=== PATIENT | male | born 1970 | race Caucasian/White ===

== ENCOUNTER 2016-07-03 20:35 | Observation (INO) | payer OTHER ==
[~2016-07-03] VITALS: Ht 180.3 cm; Wt 100.8 kg
[2016-07-03 21:45] LABS: BASO # 0.1 K/mm3 (0.0-0.2); BASO % 0.9 % (0.0-1.0); EOS # 0.4 K/mm3 (0.0-0.50); EOS % 5.5 % (0.0-3.0); LARGE UNSTAINED CELL # 0.1 K/mm3 (0.0-0.4); LARGE UNSTAINED CELL % 1.8 % (0.0-4.0); LYMPH % 38.2 % (24.0-44.0); MEAN CORPUSCULAR HEMOGLOBIN 30.7 pg (27.0-33.0); MEAN CORPUSCULAR HGB CONC 34.7 g/dl (32.0-36.5); MEAN CORPUSCULAR VOLUME 88.5 fl (80.0-96.0); MONO # 0.6 K/mm3 (0.0-0.8); MONO % 7.4 % (0.0-5.0); NEUTROPHILS # 3.5 K/mm3 (1.8-7.7); NEUTROPHILS % 46.1 % (36.0-66.0); PLATELET COUNT, AUTOMATED 220 k/mm3 (150-450); RED CELL DISTRIBUTION WIDTH 12.9 % (11.5-14.5); WHITE BLOOD COUNT 7.5 K/mm3 (4.0-10.0)
[2016-07-03 22:00] LABS: ANION GAP 5 MEQ/L (8-16); BLOOD UREA NITROGEN 22 MG/DL (7-18); CALCIUM LEVEL 8.7 MG/DL (8.5-10.1); CARBON DIOXIDE LEVEL 30 MEQ/L (21-32); CHLORIDE LEVEL 105 MEQ/L (98-107); CREATININE FOR GFR 1.19 MG/DL (0.70-1.30); GLOMERULAR FILTRATION RATE > 60.0 (>60); GLUCOSE, FASTING 101 MG/DL (70-105); SODIUM LEVEL 140 MEQ/L (136-145)
[2016-07-03] MEDS ORDERED: ISOVUE-370 76% 100ML VIAL (Q9967) As Ordered ONE (22:29)
--- NOTE | 2016-07-03 23:00 | REPUSA ---
CT of the head Clinical history: syncope. Technique: Multiple axial CT images were obtained through the head without administration of contrast . Findings: The ventricles and sulci are symmetric bilaterally. There is no evidence of acute hemorrhag e or infarct. There is no midline shift, mass effect, or extra-axial fluid collection. The osseous st ructures are unremarkable. The visualized paranasal sinuses and mastoid air cells are clear. Impression: Negative study.
--- NOTE | 2016-07-03 23:10 | REPUSA ---
Clinical history:, syncope, neck pain. Technique: Multiple axial CT images were obtained through the neck after a bolus of nonionic intraven ous contrast. Coronal and sagittal reconstructed images were also obtained. Findings: The visualized intracerebral arterial structures, extending inferiorly through the carotid and vertebrobasilar arterial systems, and into the upper thorax demonstrate normal caliber and contou r. There is no evidence of aneurysm, stenosis, or thrombosis. The osseous structures are unremarkable . Impression: Unremarkable CT angiogram of the neck.
[2016-07-03 23:19] LABS: AMPHETAMINES LEVEL URINE NEGATIVE (NEGATIVE); BENZODIAZEPINES URINE NEGATIVE (NEGATIVE); COCAINE METABOLITE URINE NEGATIVE (NEGATIVE); CONTROL LINE INT CTR LINE PRESENT; METHADONE URINE NEGATIVE (NEGATIVE); OPIATES URINE NEGATIVE (NEGATIVE); TRICYCLIC ANTIDEPRESS URINE NEGATIVE (NEGATIVE)
[2016-07-04] MEDS ORDERED: OMEP40CA2 PO (00:40)
[2016-07-04] MEDS ORDERED: SYNT100T PO (00:40)
[2016-07-04] MEDS ORDERED: ACET50TAOT PO (00:40)
[2016-07-04] MEDS ORDERED: NAPR1TAB86 PO (00:40)
[2016-07-04] MEDS ORDERED: SULF500T2 PO (00:40)
[2016-07-04] MEDS ORDERED: DICY10CA13 PO (00:40)
[2016-07-04 00:52] LABS: ERYTHROCYTE SEDIMENTATION RATE 2 mm/hr (0-15)
[2016-07-04] MEDS ORDERED: DICYCLOMINE 10 MG CAP PO PRN (03:00)
[2016-07-04] MEDS ORDERED: ACETAMINOPHEN 500 MG TAB PO PRN (03:00)
[2016-07-04] MEDS ORDERED: LEVOTHYROXINE 0.1 MG TAB (100 MCG) PO SCH (06:00)
[2016-07-04 06:48] LABS: MEAN CORPUSCULAR HEMOGLOBIN 30.7 pg (27.0-33.0); MEAN CORPUSCULAR HGB CONC 35.1 g/dl (32.0-36.5); MEAN CORPUSCULAR VOLUME 87.4 fl (80.0-96.0); WHITE BLOOD COUNT 5.8 K/mm3 (4.0-10.0)
[2016-07-04 07:14] LABS: ANION GAP 8 MEQ/L (8-16); BLOOD UREA NITROGEN 18 MG/DL (7-18); CARBON DIOXIDE LEVEL 27 MEQ/L (21-32); CHLORIDE LEVEL 106 MEQ/L (98-107); CREATININE FOR GFR 1.07 MG/DL (0.70-1.30); GLOMERULAR FILTRATION RATE > 60.0 (>60); GLUCOSE, FASTING 101 MG/DL (70-105); POTASSIUM SERUM 3.9 MEQ/L (3.5-5.1); SODIUM LEVEL 141 MEQ/L (136-145)
[2016-07-04 08:00] VITALS: BP 127/87
--- NOTE | 2016-07-04 08:33 | REP ---
Clinical: Syncope . Comparison: 09/20/2015 . Findings: The mediastinum and cardiac silhouette are stable and within normal limits for portable technique. The lung [place] are clear without acute consolidation, effusion, or pneumothorax. Skeletal structures are intact. Impression: Normal portable chest x-ray Signed by Marbin Eubanks MD 07/04/2016 08:24 A
--- NOTE | 2016-07-04 08:57 | REP ---
MRA BRAIN WITHOUT CONTRAST: HISTORY: Syncope. 3D [id number] MR angiography was performed at the level of the ey[place] of [place]. There is no aneurysm, arteriovenous malformation or atherosclerotic lesion. Major intracranial vessels are patent. The vertebral arteries are equal in size. IMPRESSION: Normal MRA brain. Signed by Sidney Fuller MD 07/04/2016 09:09 A
[2016-07-04] MEDS ORDERED: ENOXAPARIN 40 MG/0.4 ML SYRINGE (J1650) SC SCH (09:00)
[2016-07-04] MEDS ORDERED: OMEPRAZOLE 20 MG CAP PO SCH (09:00)
[2016-07-04] MEDS ORDERED: sulfaSALAzine 500 MG TABEC PO SCH (09:00)
[2016-07-04] MEDS ORDERED: NAPROXEN 250 MG TAB PO SCH (09:00)
--- NOTE | 2016-07-04 09:07 | REP ---
MRI BRAIN WITHOUT CONTRAST: HISTORY: Syncope. COMPARISON: CT 07/03/2016. There are no areas of abnormal signal intensity in the brain. There is no intraparenchymal hemorrhage, infarct, mass or midline shift. The sella turcica is partially empty. The ventricular system is normal in appearance. There is no extracerebral collection. Minimal mucosal thickening is present in the left maxillary sinus. IMPRESSION: There is no intracranial lesion. Signed by Sidney Fuller MD 07/04/2016 09:08 A
[2016-07-04] MEDS ORDERED: LORazepam 2 MG/ML VIAL (J2060) IV PRN (11:00)
[2016-07-04 11:24] LABS: ALBUMIN 3.8 GM/DL (3.2-5.2); ALBUMIN/GLOBULIN RATIO 1.31 (1.00-1.93); ALKALINE PHOSPHATASE 57 U/L (45-117); ALT/SGPT 20 U/L (12-78); AST/SGOT 13 U/L (15-37); BILIRUBIN,DIRECT < 0.1 MG/DL (0.0-0.2); BILIRUBIN,TOTAL 0.5 MG/DL (0.2-1.0); TOTAL PROTEIN 6.7 GM/DL (6.4-8.2)
[2016-07-04 12:00] VITALS: BP 147/95
[2016-07-04 12:15] LABS: MEAN CORPUSCULAR HEMOGLOBIN 30.9 pg (27.0-33.0); MEAN CORPUSCULAR HGB CONC 34.9 g/dl (32.0-36.5); MEAN CORPUSCULAR VOLUME 88.5 fl (80.0-96.0); RED CELL DISTRIBUTION WIDTH 12.9 % (11.5-14.5); WHITE BLOOD COUNT 6.4 K/mm3 (4.0-10.0)
--- NOTE | 2016-07-04 12:24 | EDDOCDS ---
Physician Documentation [facility] Name: Walt Varela Age: 46 yrs Sex: Male : 1970 Arrival Date: 07/03/2016 Time: 20:35 Bed Admit Hold Private MD: Rick Borjas M.D. Disposition: 07/04/16 00:22 Hospitalization ordered by Genaro Shelton for Inpatient Admission. Preliminary diagnosis are Syncope and collapse, Headache. - Bed requested for Admit. - Status is Inpatient Admission. mcp - Condition is Stable. - Problem is an acute exacerbation. - Symptoms have improved. Historical: - Allergies: no known allergies; - Home Meds: 1. dicyclomine 10 mg Oral cap 1 cap as needed 2. levothyroxine 100 mcg Oral tab 1 tab once daily 3. omeprazole 40 mg Oral cpDR 1 cap 2 times per day for Gastroesophageal Reflux 4. naproxen 500 mg Oral tab 1 tab 2 times per day 5. sulfasalazine 500 mg Oral tab 1 tab twice a day for Rheumatoid Arthritis - PMHx: GERD; Rheumatoid Arthritis; Hypothyroidism; - PSHx: Tonsillectomy; Adenoidectomy; Vasectomy; - Social history: Smoking status: Patient uses tobacco products, light tobacco smoker. No barriers to communication noted, The patient speaks fluent Setswana. - Family history: No immediate family members are acutely ill. - : The pt / caregiver states he / she is not on anticoagulants. Home medication list is obtained from the patient. - Exposure Risk Screening:: None identified. Vital Signs: 07/03 20:37 BP 142 / 96; Pulse 72; Resp 18; Temp 98.2(O); Pulse Ox 96% on R/A; Weight 100.79 kg / kb5 222.2 lbs (M); Height 5 ft. 11 in. (180.34 cm) (R); Pain 5/10; 21:27 BP 133 / 91 Supine; Pulse 63; Resp 16; Pulse Ox 97% ; mv5 21:27 BP 144 / 99 Sitting; Pulse 62; Resp 16; Pulse Ox 97% ; mv5 21:27 BP 150 / 101 Standing; Pulse 61; Resp 18; Pulse Ox 96% ; mv5 21:30 BP 145 / 90 (auto/); mv5 21:30 Pulse 62 MON; Pulse Ox 97% ; mv5 21:45 BP 149 / 85 (auto/); mv5 21:45 Pulse 62 MON; Pulse Ox 95% ; mv5 22:00 BP 138 / 93 (auto/); mv5 22:00 Pulse 70 MON; Pulse Ox 96% ; mv5 22:15 BP 128 / 87 (auto/); mv5 22:15 Pulse 63 MON; Pulse Ox 94% ; mv5 22:30 BP 126 / 86 (auto/); mv5 22:30 Pulse 62 MON; Pulse Ox 96% ; mv5 22:48 BP 136 / 87 (auto/); mv5 22:49 Pulse 61 MON; Pulse Ox 97% ; mv5 23:00 BP 134 / 88 (auto/); mv5 23:00 Pulse 57 MON; Pulse Ox 95% ; mv5 23:15 BP 133 / 93 (auto/); mv5 23:15 Pulse 55 MON; Pulse Ox 94% ; mv5 23:30 BP 124 / 76 (auto/); mv5 23:30 Pulse 63 MON; Pulse Ox 98% ; mv5 23:45 BP 128 / 85 (auto/); mv5 23:45 Pulse 60 MON; Pulse Ox 95% ; mv5 02/21 00:00 BP 107 / 62 (auto/); mv5 00:00 Pulse 63 MON; Pulse Ox 95% ; mv5 00:15 BP 115 / 70 (auto/); mv5 00:15 Pulse 66 MON; Pulse Ox 96% ; mv5 00:30 BP 116 / 72 (auto/); mv5 00:30 Pulse 61 MON; Pulse Ox 94% ; mv5 00:45 BP 116 / 76 (auto/); mv5 00:45 Pulse 57 MON; Pulse Ox 94% ; mv5 01:00 BP 115 / 85 (auto/); mv5 01:00 Pulse 60 MON; Pulse Ox 96% ; mv5 01:15 BP 125 / 82 (auto/); mv5 01:15 Pulse 55 MON; Pulse Ox 95% ; mv5 01:30 BP 104 / 61 (auto/); mv5 01:30 Pulse 59 MON; Pulse Ox 96% ; mv5 01:45 BP 105 / 66 (auto/); mv5 01:45 Pulse 61 MON; Pulse Ox 96% ; mv5 02:00 BP 104 / 62 (auto/); mv5 02:00 Pulse 57 MON; Pulse Ox 96% ; mv5 02:15 BP 121 / 67 (auto/); mv5 02:15 Pulse 51 MON; Pulse Ox 96% ; mv5 02:30 BP 109 / 61 (auto/); mv5 02:30 Pulse 55 MON; Pulse Ox 95% ; mv5 02:45 BP 108 / 67 (auto/); mv5 02:45 Pulse 58 MON; Pulse Ox 97% ; mv5 03:00 BP 113 / 71 (auto/); mv5 03:00 Pulse 63 MON; Pulse Ox 95% ; mv5 04:18 BP 128 / 81 (auto/); mv5 04:21 Pulse 71 MON; Pulse Ox 95% ; mv5 04:30 BP 103 / 60 (auto/); mv5 04:30 Pulse 62 MON; Pulse Ox 95% ; mv5 04:45 BP 104 / 62 (auto/); mv5 04:45 Pulse 61 MON; Pulse Ox 95% ; mv5 05:00 BP 111 / 63 (auto/); mv5 05:00 Pulse 59 MON; Pulse Ox 96% ; mv5 05:15 BP 105 / 62 (auto/); mv5 05:15 Pulse 61 MON; Pulse Ox 96% ; mv5 06:20 BP 110 / 73 (auto/); mv5 06:20 Pulse 108 MON; Pulse Ox 92% ; mv5 0220 20:37 Body Mass Index 30.99 (100.79 kg, 180.34 cm) kb5 MDM: 07/03 20:50 ECG WITH READING ER PHYS+CARDIAG ordered. EDMS 21:14 Environmental Studies Program Director/Pulse Ox/q 15 min VS ordered. mm11 21:14 Accucheck ordered. mm11 21:14 IV Saline Lock ordered. mm11 21:14 Orthostatic VS ordered. mm11 21:14 Rhythm Strip to chart ordered. mm11 21:15 Basic Metabolic Profile Ordered. EDMS 21:15 CBC with Diff Ordered. EDMS 21:15 Cardiac Injury Profile Ordered. EDMS 21:15 Drug Eval Toxicology ED Only Ordered. EDMS 21:15 Thyroid Stimulating Hormone Ordered. EDMS 21:15 Troponin Ordered. EDMS 21:16 CT Head Without Contrast Ordered. EDMS 21:16 Chest, 1 View Ordered. EDMS 21:16 CT Angio Neck: r/o carotid dissection Ordered. EDMS 21:39 Financial registration complete. zo 22:01 PA-[facility] Payment Agreement was scanned into [employer] and attached to record. zo 22:06 Fingerstick Blood Sugar Ordered. EDMS 22:07 Basic Metabolic Profile Reviewed. mm11 22:07 CBC with Diff Reviewed. mm11 22:07 Troponin Reviewed. mm11 23:21 Basic Metabolic Profile Reviewed. mm11 23:21 Drug Eval Toxicology ED Only Reviewed. mm11 23:21 Thyroid Stimulating Hormone Reviewed. mm11 23:21 Cardiac Injury Profile Reviewed. mm11 23:21 Troponin Reviewed. mm11 23:21 Fingerstick Blood Sugar Reviewed. mm11 23:42 Basic Metabolic Profile Reviewed. mm11 23:42 Thyroid Stimulating Hormone Reviewed. mm11 23:42 Cardiac Injury Profile Reviewed. mm11 23:42 Troponin Reviewed. mm11 23:42 FREE T4 Reviewed. mm11 07/04 00:11 BED REQUEST+ADM ordered. EDMS 00:13 ERYTHROCYTE SEDIMENTATION RATE Ordered. EDMS 00:18 Admission / Observation Status ordered. EDMS 00:19 CBC with Diff Reviewed. mm11 00:19 CT Head Without Contrast Reviewed. mm11 00:19 CT Angio Neck: r/o carotid dissection Reviewed. mm11 03:04 ECHOCARD,DOPPLER/COLOR FLOW ordered. EDMS 03:04 REGULAR DIET ordered. EDMS 03:04 MRA BRAIN W/O CONTRAST Ordered. EDMS 03:04 MRI Brain without Contrast Ordered. EDMS 03:06 CARDIAC MARKER PANEL Ordered. EDMS 03:06 CARDIAC MARKER PANEL Ordered. EDMS 03:08 COMPLETE BLOOD COUNT Ordered. EDMS 03:08 COMPLETE BLOOD COUNT Ordered. EDMS 03:21 BASIC METABOLIC PROFILE Ordered. EDMS Point of Care Testing: Blood Glucose: 07/03 21:49 Blood Glucose: 92 mg/dL; mv5 Ranges: Signatures: Dispatcher [employer] EDNila Dumont RN RN Minh Quezada Matthew, DO DO mm11 Anny Carlisle RN RN rs3 Kalani FonsecaRN RN mv5 The chart was reviewed and I authenticate all verbal orders and agree with the evaluation and treatment provided.Corrections: (The following items were deleted from the chart) 23:26 23:23 FREE T4+LAB ordered. EDMS EDMS 07/04 00:14 00:01 ERYTHROCYTE SEDIMENTATION RATE+LAB ordered. EDMS EDMS 03:20 03:08 BASIC METABOLIC PROFILE ordered. EDMS EDMS 11:01 10:55 LIVER PROFILE ordered. EDMS EDMS 12: 03:08 COMPLETE BLOOD COUNT ordered. EDMS EDMS : 07/03 22:[address] PA[address] Payment Agreement zo MTDD
--- NOTE | 2016-07-04 12:24 | EDDOCDS ---
Nurse's Notes [facility] Name: Walt Varela Age: 46 yrs Sex: Male : 1970 Arrival Date: 07/03/2016 Time: 20:35 Bed Admit Hold Private MD: Rick Borjas M.D. Diagnosis: Syncope and collapse;Headache Presentation: 07/03 20:43 Presenting complaint: Patient states: syncopal episode twice last night lasted 30 secs. rs3 no syncope today. reports of headache, generalized weakness, neck pain, blurred vision since this morning. Acute neurological deficits are not present. Patient denies the presence of acute pain prior to syncopal episode. The patient is not diaphoretic or experienced diaphoresis prior to the syncopal episode The patient denies shortness of breath. The patient denies recent surgery. Adult Sepsis Screening: The patient does not have new or worsening altered mentation. Patient's respiratory rate is less than 22. Systolic blood pressure is greater than 100. Patient has a qSOFA score of 0- Negative Sepsis Screen. Suicide/Homicide risk assessment- the patient denies having any suicidal and/or homicidal ideations and does not present with any other emotional, behavioral or mental health complaints. Status: Patient is not a fiscal services manager or dependent. Transition of care: patient was not received from another setting of care. 20:43 Acuity: JANY Level 3 rs3 20:43 Method Of Arrival: Walkin/Carried/Asstd rs3 Triage Assessment: 20:46 General: Appears in no apparent distress. Pain: Location: neck pain. HIV screening NA rs3 for this visit Offered previously. Neurological: Reports headache. Historical: - Allergies: no known allergies; - Home Meds: 1. dicyclomine 10 mg Oral cap 1 cap as needed 2. levothyroxine 100 mcg Oral tab 1 tab once daily 3. omeprazole 40 mg Oral cpDR 1 cap 2 times per day for Gastroesophageal Reflux 4. naproxen 500 mg Oral tab 1 tab 2 times per day 5. sulfasalazine 500 mg Oral tab 1 tab twice a day for Rheumatoid Arthritis - PMHx: GERD; Rheumatoid Arthritis; Hypothyroidism; - PSHx: Tonsillectomy; Adenoidectomy; Vasectomy; - Social history: Smoking status: Patient uses tobacco products, light tobacco smoker. No barriers to communication noted, The patient speaks fluent Macedonian. - Family history: No immediate family members are acutely ill. - : The pt / caregiver states he / she is not on anticoagulants. Home medication list is obtained from the patient. - Exposure Risk Screening:: None identified. Screenin:28 Screening information is obtained from the patient. Fall risk: No risks identified. mv5 Assistance ADL's: requires no assistance with activities of daily living. Abuse/DV Screen: The patient / caregiver reports he/she is: not in a situation that causes fear, pain or injury. Nutritional screening: No deficits noted. Advance Directives: There is no active DNR order. home support is adequate. Assessment: 21:28 General: Appears in no apparent distress, comfortable, Behavior is cooperative, mv5 pleasant, Pt's at bedside.. Pain: Denies pain. Neurological: Level of Consciousness is awake, alert, Oriented to person, place, time, Alligator Trapper are equal bilaterally Moves all extremities. Speech is normal, Facial symmetry appears normal. Cardiovascular: Capillary refill < 3 seconds Heart tones S1 S2 present Pulses are all present. Rhythm is sinus rhythm No ectopy. Respiratory: Airway is patent Respiratory effort is even, unlabored, Respiratory pattern is regular, symmetrical. Derm: Skin is pink, warm & dry. 22:24 General: Appears in no apparent distress, comfortable, Behavior is cooperative, mv5 pleasant, at bedside. Pain: Denies pain. Neurological: No deficits noted. Cardiovascular: Rhythm is sinus rhythm No ectopy. Respiratory: Airway is patent Respiratory effort is even, unlabored, Respiratory pattern is regular, symmetrical. Derm: Skin is pink, warm & dry. 23:12 General: Appears in no apparent distress, comfortable, Behavior is cooperative, mv5 pleasant. Pain: Location: top of head, left jew, right frontal area, right side of the back of head, right temporal area, right occipital area and right base of the skull Pain currently is 4 out of 10 on a pain scale. Neurological: No deficits noted. Cardiovascular: Rhythm is sinus rhythm No ectopy. Respiratory: Airway is patent Respiratory effort is even, unlabored, Respiratory pattern is regular, symmetrical. Derm: Skin is pink, warm & dry. 07/04 00:29 General: Appears in no apparent distress, comfortable, Behavior is cooperative, mv5 pleasant. Neurological: No deficits noted. Respiratory: Airway is patent Respiratory effort is even, unlabored, Respiratory pattern is regular, symmetrical. Derm: Skin is pink, warm & dry. 01:29 General: Appears in no apparent distress, comfortable, Behavior is cooperative, mv5 pleasant. Neurological: Level of Consciousness is awake, alert, Oriented to person, place, time, Moves all extremities. Speech is normal, Facial symmetry appears normal. Cardiovascular: Rhythm is sinus rhythm No ectopy. Respiratory: Airway is patent Respiratory effort is even, unlabored, Respiratory pattern is regular, symmetrical. Derm: Skin is pink, warm & dry. 02:20 General: Appears in no apparent distress, comfortable. Neurological: No deficits noted. mv5 Cardiovascular: Rhythm is sinus rhythm No ectopy. Derm: Skin is pink, warm & dry. 03:20 General: Appears in no apparent distress. Neurological: No deficits noted. mv5 Cardiovascular: Rhythm is sinus rhythm No ectopy. Respiratory: No deficits noted. Derm: Skin is pink, warm & dry. 04:23 General: Appears in no apparent distress, Behavior is cooperative, restless. mv5 Neurological: No deficits noted. Cardiovascular: Rhythm is sinus rhythm No ectopy. Derm: Skin is pink, warm & dry. 05:29 General: Appears in no apparent distress, comfortable. Neurological: No deficits noted. mv5 Cardiovascular: Rhythm is sinus rhythm No ectopy. Respiratory: Derm: Skin is pink, warm & dry. 06:35 General: Appears in no apparent distress, comfortable. Neurological: No deficits noted. mv5 Cardiovascular: Rhythm is sinus rhythm No ectopy. Respiratory: Airway is patent Respiratory effort is even, unlabored, Respiratory pattern is regular, symmetrical. Derm: Skin is pink, warm & dry. Vital Signs: 07/03 20:37 BP 142 / 96; Pulse 72; Resp 18; Temp 98.2(O); Pulse Ox 96% on R/A; Weight 100.79 kg kb5 (M); Height 5 ft. 11 in. (180.34 cm) (R); Pain 5/10; 21:27 BP 133 / 91 Supine; Pulse 63; Resp 16; Pulse Ox 97% ; mv5 21:27 BP 144 / 99 Sitting; Pulse 62; Resp 16; Pulse Ox 97% ; mv5 21:27 BP 150 / 101 Standing; Pulse 61; Resp 18; Pulse Ox 96% ; mv5 21:30 BP 145 / 90 (auto/); mv5 21:30 Pulse 62 MON; Pulse Ox 97% ; mv5 21:45 BP 149 / 85 (auto/); mv5 21:45 Pulse 62 MON; Pulse Ox 95% ; mv5 22:00 BP 138 / 93 (auto/); mv5 22:00 Pulse 70 MON; Pulse Ox 96% ; mv5 22:15 BP 128 / 87 (auto/); mv5 22:15 Pulse 63 MON; Pulse Ox 94% ; mv5 22:30 BP 126 / 86 (auto/); mv5 22:30 Pulse 62 MON; Pulse Ox 96% ; mv5 22:48 BP 136 / 87 (auto/); mv5 22:49 Pulse 61 MON; Pulse Ox 97% ; mv5 23:00 BP 134 / 88 (auto/); mv5 23:00 Pulse 57 MON; Pulse Ox 95% ; mv5 23:15 BP 133 / 93 (auto/); mv5 23:15 Pulse 55 MON; Pulse Ox 94% ; mv5 23:30 BP 124 / 76 (auto/); mv5 23:30 Pulse 63 MON; Pulse Ox 98% ; mv5 23:45 BP 128 / 85 (auto/); mv5 23:45 Pulse 60 MON; Pulse Ox 95% ; mv5 02/21 00:00 BP 107 / 62 (auto/); mv5 00:00 Pulse 63 MON; Pulse Ox 95% ; mv5 00:15 BP 115 / 70 (auto/); mv5 00:15 Pulse 66 MON; Pulse Ox 96% ; mv5 00:30 BP 116 / 72 (auto/); mv5 00:30 Pulse 61 MON; Pulse Ox 94% ; mv5 00:45 BP 116 / 76 (auto/); mv5 00:45 Pulse 57 MON; Pulse Ox 94% ; mv5 01:00 BP 115 / 85 (auto/); mv5 01:00 Pulse 60 MON; Pulse Ox 96% ; mv5 01:15 BP 125 / 82 (auto/); mv5 01:15 Pulse 55 MON; Pulse Ox 95% ; mv5 01:30 BP 104 / 61 (auto/); mv5 01:30 Pulse 59 MON; Pulse Ox 96% ; mv5 01:45 BP 105 / 66 (auto/); mv5 01:45 Pulse 61 MON; Pulse Ox 96% ; mv5 02:00 BP 104 / 62 (auto/); mv5 02:00 Pulse 57 MON; Pulse Ox 96% ; mv5 02:15 BP 121 / 67 (auto/); mv5 02:15 Pulse 51 MON; Pulse Ox 96% ; mv5 02:30 BP 109 / 61 (auto/); mv5 02:30 Pulse 55 MON; Pulse Ox 95% ; mv5 02:45 BP 108 / 67 (auto/); mv5 02:45 Pulse 58 MON; Pulse Ox 97% ; mv5 03:00 BP 113 / 71 (auto/); mv5 03:00 Pulse 63 MON; Pulse Ox 95% ; mv5 04:18 BP 128 / 81 (auto/); mv5 04:21 Pulse 71 MON; Pulse Ox 95% ; mv5 04:30 BP 103 / 60 (auto/); mv5 04:30 Pulse 62 MON; Pulse Ox 95% ; mv5 04:45 BP 104 / 62 (auto/); mv5 04:45 Pulse 61 MON; Pulse Ox 95% ; mv5 05:00 BP 111 / 63 (auto/); mv5 05:00 Pulse 59 MON; Pulse Ox 96% ; mv5 05:15 BP 105 / 62 (auto/); mv5 05:15 Pulse 61 MON; Pulse Ox 96% ; mv5 06:20 BP 110 / 73 (auto/); mv5 06:20 Pulse 108 MON; Pulse Ox 92% ; mv5 02 20:37 Body Mass Index 30.99 (100.79 kg, 180.34 cm) kb5 Vitals: 07/03 20:37 Log In Time: July 03, 2016 at 20:00. kb5 ED Course: 20:36 Patient visited by Kiet Baxter PCA. kb5 20:36 Patient moved to Waiting kb5 20:37 Rick Borjas is Private Physician. kb5 20:40 Patient visited by Kiet Baxter PCA. kb5 20:45 Triage Initiated rs3 20:48 Patient moved to PR2 / 26 rs3 20:53 EKG done. (by ED staff). Reviewed by Miki Russell DO. ar3 20:54 Kalani Fonseca,RN is Primary Nurse. jmb 20:54 Patient moved to 3 jmb 20:56 Miki Russell DO is Attending Physician. mm11 20:56 Patient visited by Miki Russell DO. mm11 21:01 Patient visited by Caitlin Villarreal PCA. ar3 21:13 Patient visited by Miki Russell DO. mm11 21:19 Basic Metabolic Profile Sent. mv5 21:19 CBC with Diff Sent. mv5 21:19 Cardiac Injury Profile Sent. mv5 21:20 Drug Eval Toxicology ED Only Sent. mv5 21:20 Thyroid Stimulating Hormone Sent. mv5 21:20 Troponin Sent. mv5 21:28 The patient / caregiver is instructed regarding the plan of care and ED course. mv5 21:28 Inserted saline lock: 18 gauge in right antecubital area and blood collected. The mv5 patient tolerated the procedure well. 21:49 Patient visited by Kalani Fonseca,ARBEN. mv5 22:01 [facility] Payment Agreement was scanned into Takes and attached to record. zo 22:24 Patient visited by Kalani Fonseca,ARBEN. mv5 23:12 Patient visited by Kalani Fonseca,ARBEN. mv5 23:43 Patient visited by Miki Russell DO. mm11 23:55 CT Head Without Contrast Returned. EDMS 23:55 CT Angio Neck: r/o carotid dissection Returned. EDMS 07/04 00:21 Genaro Shelton DO is Hospitalizing Provider. mm11 02:10 Patient moved to Admit Hold nn1 08:47 Chest, 1 View Returned. EDMS 09:29 MRA BRAIN W/O CONTRAST Returned. EDMS 09:29 MRI Brain without Contrast Returned. EDMS Point of Care Testing: Blood Glucose: 07/03 21:49 Blood Glucose: 92 mg/dL; mv5 Ranges: Order Results: Lab Order: Basic Metabolic Profile; SPEC'M 07/03/16 21:16 Test: GLUCOSE, FASTING; Value: 101; Range: 70-105; Units: MG/DL; Status: F Test: BLOOD UREA NITROGEN; Value: 22; Range: 7-18; Abnormal: Above high normal; Units: MG/DL; Status: F Test: CREATININE FOR GFR; Value: 1.19; Range: 0.70-1.30; Units: MG/DL; Status: F Test: GLOMERULAR FILTRATION RATE; Value: > 60.0; Range: >60; Status: F Test: SODIUM LEVEL; Value: 140; Range: 136-145; Units: MEQ/L; Status: F Test: POTASSIUM SERUM; Value: 4.0; Range: 3.5-5.1; Units: MEQ/L; Status: F Test: CHLORIDE LEVEL; Value: 105; Range: 98-107; Units: MEQ/L; Status: F Test: CARBON DIOXIDE LEVEL; Value: 30; Range: 21-32; Units: MEQ/L; Status: F Test: ANION GAP; Value: 5; Range: 8-16; Abnormal: Below low normal; Units: MEQ/L; Status: F Test: CALCIUM LEVEL; Value: 8.7; Range: 8.5-10.1; Units: MG/DL; Status: F Test Note: ; Units are mL/min/1.73 m2 Chronic Kidney Disease Staging per NKF: Stage I & II GFR >=60 Normal to Mildly Decreased Stage III GFR 30-59 Moderately Decreased Stage IV GFR 15-29 Severely Decreased Stage V GFR <15 Very Little GFR Left ESRD GFR <15 on ZONING ENGINEER Lab Order: CBC with Diff; SPEC'M 07/03/16 21:16 Test: WHITE BLOOD COUNT; Value: 7.5; Range: 4.0-10.0; Units: K/mm3; Status: F Test: RED BLOOD COUNT; Value: 5.05; Range: 4.30-6.10; Units: M/mm3; Status: F Test: HEMOGLOBIN; Value: 15.5; Range: 14.0-18.0; Units: g/dl; Status: F Test: HEMATOCRIT; Value: 44.7; Range: 42.0-52.0; Units: %; Status: F Test: MEAN CORPUSCULAR VOLUME; Value: 88.5; Range: 80.0-96.0; Units: fl; Status: F Test: MEAN CORPUSCULAR HEMOGLOBIN; Value: 30.7; Range: 27.0-33.0; Units: pg; Status: F Test: MEAN CORPUSCULAR HGB CONC; Value: 34.7; Range: 32.0-36.5; Units: g/dl; Status: F Test: RED CELL DISTRIBUTION WIDTH; Value: 12.9; Range: 11.5-14.5; Units: %; Status: F Test: PLATELET COUNT, AUTOMATED; Value: 220; Range: 150-450; Units: k/mm3; Status: F Test: NEUTROPHILS %; Value: 46.1; Range: 36.0-66.0; Units: %; Status: F Test: LYMPH %; Value: 38.2; Range: 24.0-44.0; Units: %; Status: F Test: MONO %; Value: 7.4; Range: 0.0-5.0; Abnormal: Above high normal; Units: %; Status: F Test: EOS %; Value: 5.5; Range: 0.0-3.0; Abnormal: Above high normal; Units: %; Status: F Test: BASO %; Value: 0.9; Range: 0.0-1.0; Units: %; Status: F Test: LARGE UNSTAINED CELL %; Value: 1.8; Range: 0.0-4.0; Units: %; Status: F Test: NEUTROPHILS #; Value: 3.5; Range: 1.8-7.7; Units: K/mm3; Status: F Test: LYMPH #; Value: 3.0; Range: 1.5-4.5; Units: K/mm3; Status: F Test: MONO #; Value: 0.6; Range: 0.0-0.8; Units: K/mm3; Status: F Test: EOS #; Value: 0.4; Range: 0.0-0.50; Units: K/mm3; Status: F Test: BASO #; Value: 0.1; Range: 0.0-0.2; Units: K/mm3; Status: F Test: LARGE UNSTAINED CELL #; Value: 0.1; Range: 0.0-0.4; Units: K/mm3; Status: F Lab Order: Cardiac Injury Profile; SPEC'M 07/03/16 21:16 Test: CPK CREATINE PHOSPHOKINASE; Value: 93; Range: 39-308; Units: U/L; Status: F Test: CK-MB VALUE MASS; Value: 1.2; Range: 0.0-3.6; Units: NG/ML; Status: F Test: MB/CK RELATIVE INDEX; Value: 1.29; Range: < OR =4; Status: F Test Note: ; DIAGNOSIS CRITERIA MMB ng/ml Relative Index (RI) NON-AMI < or = 5 N/A PLASENCIA ZONE > 5 < or = 4 AMI > 5 > 4 Lab Order: Drug Eval Toxicology ED Only; [facility]07/03/16 22:50 Test: AMPHETAMINES LEVEL URINE; Value: NEGATIVE; Range: NEGATIVE; Status: F Test: BARBITURATES URINE; Value: NEGATIVE; Range: NEGATIVE; Status: F Test: BENZODIAZEPINES URINE; Value: NEGATIVE; Range: NEGATIVE; Status: F Test: CANNABINOIDS URINE; Value: POSITIVE; Range: NEGATIVE; Abnormal: Above high normal; Status: F Test: COCAINE METABOLITE URINE; Value: NEGATIVE; Range: NEGATIVE; Status: F Test: METHADONE URINE; Value: NEGATIVE; Range: NEGATIVE; Status: F Test: OPIATES URINE; Value: NEGATIVE; Range: NEGATIVE; Status: F Test: TRICYCLIC ANTIDEPRESS URINE; Value: NEGATIVE; Range: NEGATIVE; Status: F Test Note: ; FALSE POSITIVE RESULTS CAN BE CAUSED BY THE USE OF PANTOPRAZOLE (PROTONIX). Lab Order: Thyroid Stimulating Hormone; 07/03/16 21:16 Test: THYROID STIMULATING HORMONE; Value: 12.900; Range: 0.358-3.740; Abnormal: Above high normal; Units: uIU/ML; Status: F Lab Order: Troponin; 07/03/16 21:16 Test: TROPONIN I; Value: < 0.02; Range: < 0.10; Units: NG/ML; Status: F Test Note: ; Troponin I Reference Interval for [employer] [employer] LOCI: 99th Percentile= 0.00-0.045 ng/ml Risk Stratification: <= 0.10 ng/ml Decreased Risk for Adverse Clinical Events. 0.10-1.50 ng/ml Increased Risk for Adverse Clinical Events. Evaluation of additional criterion and/or repeat testing in 2-6 hours is suggested to rule out myocardial damage. >= 1.50 ng/ml Indicative of Myocardial Injury. Lab Order: Fingerstick Blood Sugar; 07/03/16 21:47 Test: BEDSIDE GLUCOSE; Value: 92; Range: 70-105; Units: MG/DL; Status: F Lab Order: FREE T4; 07/03/16 21:16 Test: FREE T4; Value: 1.00; Range: 0.76-1.46; Units: NG/DL; Status: F Lab Order: ERYTHROCYTE SEDIMENTATION RATE; [facility] 07/03/16 21:16 Test: ERYTHROCYTE SEDIMENTATION RATE; Value: 2; Range: 0-15; Units: mm/hr; Status: F Lab Order: CARDIAC MARKER PANEL; [facility] 07/04/16 06:38 Test: CPK CREATINE PHOSPHOKINASE; Value: 71; Range: 39-308; Units: U/L; Status: F Test: CK-MB VALUE MASS; Value: 1.0; Range: 0.0-3.6; Units: NG/ML; Status: F Test: MB/CK RELATIVE INDEX; Value: 1.40; Range: < OR =4; Status: F Test: TROPONIN I; Value: < 0.02; Range: < 0.10; Units: NG/ML; Status: F Test Note: ; DIAGNOSIS CRITERIA MMB ng/ml Relative Index (RI) NON-AMI < or = 5 N/A PLASENCIA ZONE > 5 < or = 4 AMI > 5 > 4 Lab Order: COMPLETE BLOOD COUNT; [facility] 07/04/16 06:38 Test: WHITE BLOOD COUNT; Value: 5.8; Range: 4.0-10.0; Units: K/mm3; Status: F Test: RED BLOOD COUNT; Value: 5.17; Range: 4.30-6.10; Units: M/mm3; Status: F Test: HEMOGLOBIN; Value: 15.9; Range: 14.0-18.0; Units: g/dl; Status: F Test: HEMATOCRIT; Value: 45.2; Range: 42.0-52.0; Units: %; Status: F Test: MEAN CORPUSCULAR VOLUME; Value: 87.4; Range: 80.0-96.0; Units: fl; Status: F Test: MEAN CORPUSCULAR HEMOGLOBIN; Value: 30.7; Range: 27.0-33.0; Units: pg; Status: F Test: MEAN CORPUSCULAR HGB CONC; Value: 35.1; Range: 32.0-36.5; Units: g/dl; Status: F Test: RED CELL DISTRIBUTION WIDTH; Value: 13.0; Range: 11.5-14.5; Units: %; Status: F Test: PLATELET COUNT, AUTOMATED; Value: 211; Range: 150-450; Units: k/mm3; Status: F Lab Order: COMPLETE BLOOD COUNT; [facility] 07/04/16 11:49 Test: WHITE BLOOD COUNT; Value: 6.4; Range: 4.0-10.0; Units: K/mm3; Status: F Test: RED BLOOD COUNT; Value: 5.13; Range: 4.30-6.10; Units: M/mm3; Status: F Test: HEMOGLOBIN; Value: 15.8; Range: 14.0-18.0; Units: g/dl; Status: F Test: HEMATOCRIT; Value: 45.4; Range: 42.0-52.0; Units: %; Status: F Test: MEAN CORPUSCULAR VOLUME; Value: 88.5; Range: 80.0-96.0; Units: fl; Status: F Test: MEAN CORPUSCULAR HEMOGLOBIN; Value: 30.9; Range: 27.0-33.0; Units: pg; Status: F Test: MEAN CORPUSCULAR HGB CONC; Value: 34.9; Range: 32.0-36.5; Units: g/dl; Status: F Test: RED CELL DISTRIBUTION WIDTH; Value: 12.9; Range: 11.5-14.5; Units: %; Status: F Test: PLATELET COUNT, AUTOMATED; Value: 213; Range: 150-450; Units: k/mm3; Status: F Lab Order: BASIC METABOLIC PROFILE; [facility] 07/04/16 06:38 Test: GLUCOSE, FASTING; Value: 101; Range: 70-105; Units: MG/DL; Status: F Test: BLOOD UREA NITROGEN; Value: 18; Range: 7-18; Units: MG/DL; Status: F Test: CREATININE FOR GFR; Value: 1.07; Range: 0.70-1.30; Units: MG/DL; Status: F Test: GLOMERULAR FILTRATION RATE; Value: > 60.0; Range: >60; Status: F Test: SODIUM LEVEL; Value: 141; Range: 136-145; Units: MEQ/L; Status: F Test: POTASSIUM SERUM; Value: 3.9; Range: 3.5-5.1; Units: MEQ/L; Status: F Test: CHLORIDE LEVEL; Value: 106; Range: 98-107; Units: MEQ/L; Status: F Test: CARBON DIOXIDE LEVEL; Value: 27; Range: 21-32; Units: MEQ/L; Status: F Test: ANION GAP; Value: 8; Range: 8-16; Units: MEQ/L; Status: F Test: CALCIUM LEVEL; Value: 9.0; Range: 8.5-10.1; Units: MG/DL; Status: F Test Note: ; Units are mL/min/1.73 m2 Chronic Kidney Disease Staging per NKF: Stage I & II GFR >=60 Normal to Mildly Decreased Stage III GFR 30-59 Moderately Decreased Stage IV GFR 15-29 Severely Decreased Stage V GFR <15 Very Little GFR Left ESRD GFR <15 on ZONING ENGINEER Lab Order: LIVER PROFILE; [facility] 07/04/16 06:38 Test: AST/SGOT; Value: 13; Range: 15-37; Abnormal: Below low normal; Units: U/L; Status: F Test: ALT/SGPT; Value: 20; Range: 12-78; Units: U/L; Status: F Test: ALKALINE PHOSPHATASE; Value: 57; Range: 45-117; Units: U/L; Status: F Test: BILIRUBIN,TOTAL; Value: 0.5; Range: 0.2-1.0; Units: MG/DL; Status: F Test: BILIRUBIN,DIRECT; Value: < 0.1; Range: 0.0-0.2; Units: MG/DL; Status: F Test: TOTAL PROTEIN; Value: 6.7; Range: 6.4-8.2; Units: GM/DL; Status: F Test: ALBUMIN; Value: 3.8; Range: 3.2-5.2; Units: GM/DL; Status: F Test: ALBUMIN/GLOBULIN RATIO; Value: 1.31; Range: 1.00-1.93; Status: F Radiology Order: CT Head Without Contrast Test: CT Head Without Contrast REASON FOR EXAMINATION: Syncope; ; CT of the head; Clinical history: syncope.; Technique: Multiple axial CT images were obtained through the head without administration of contrast; .; Findings: The ventricles and sulci are symmetric bilaterally. There is no evidence of acute hemorrhag; e or infarct. There is no midline shift, mass effect, or extra-axial fluid collection. The osseous st; ructures are unremarkable. The visualized paranasal sinuses and mastoid air cells are clear.; Impression: Negative study.; ; Radiology Order: Chest, 1 View Test: Chest, 1 View REASON FOR EXAMINATION: Syncope; Clinical: Syncope .; ; Comparison: 09/20/2015 .; ; Findings:; The mediastinum and cardiac silhouette are stable and within normal limits for; portable technique. The lung [place] are clear without acute consolidation,; effusion, or pneumothorax. Skeletal structures are intact.; ; Impression:; Normal portable chest x-ray; ; ; Signed by; Marbin Eubanks MD 07/04/2016 08:24 A; Radiology Order: CT Angio Neck: r/o carotid dissection Test: CT Angio Neck: r/o carotid dissection REASON FOR EXAMINATION: NECK PAIN; ; Clinical history:, syncope, neck pain.; Technique: Multiple axial CT images were obtained through the neck after a bolus of nonionic intraven; ous contrast. Coronal and sagittal reconstructed images were also obtained.; Findings: The visualized intracerebral arterial structures, extending inferiorly through the carotid; and vertebrobasilar arterial systems, and into the upper thorax demonstrate normal caliber and contou; r. There is no evidence of aneurysm, stenosis, or thrombosis. The osseous structures are unremarkable; .; Impression: Unremarkable CT angiogram of the neck.; ; Radiology Order: MRA BRAIN W/O CONTRAST Test: MRA BRAIN W/O CONTRAST REASON FOR EXAMINATION: syncope; MRA BRAIN WITHOUT CONTRAST:; ; HISTORY: Syncope.; ; 3D [id number] MR angiography was performed at the level of the [place] of; [place]. There is no aneurysm, arteriovenous malformation or atherosclerotic; lesion. Major intracranial vessels are patent. The vertebral arteries are equal; in size.; ; IMPRESSION:; ; Normal MRA brain.; ; ; Signed by; Sidney Fuller MD 07/04/2016 09:09 A; Radiology Order: MRI Brain without Contrast Test: MRI Brain without Contrast REASON FOR EXAMINATION: syncope; MRI BRAIN WITHOUT CONTRAST:; ; HISTORY: Syncope.; ; COMPARISON: CT 07/03/2016.; ; There are no areas of abnormal signal intensity in the brain. There is no; intraparenchymal hemorrhage, infarct, mass or midline shift. The sella turcica; is partially empty. The ventricular system is normal in appearance. There is no; extracerebral collection. Minimal mucosal thickening is present in the left; maxillary sinus.; ; IMPRESSION:; ; There is no intracranial lesion.; ; ; Signed by; Sidney Fuller MD 07/04/2016 09:08 A; Outcome: 07/04 00:22 Decision to Hospitalize by Provider. mm11 12:23 Patient left the ED. [facility] Signatures: Dispatcher [employer] EDMS Nila Barrios, RN RN [facility] Minh Luna Kristopher, DOUBLE NEEDLE OPERATOR LOCKSTITCH DOUBLE NEEDLE OPERATOR LOCKSTITCH kb5 Miki Russell DO DO mm11 Anny CarlisleRN RN rs3 Caitlin Villarreal, DOUBLE NEEDLE OPERATOR LOCKSTITCH DOUBLE NEEDLE OPERATOR LOCKSTITCH ar3 Srinivas Richards RN RN jmb Nunez, NikkoleRN RN nn1 Kalani FonsecaRN RN mv5 MTDD
[2016-07-04 12:36] VITALS: BP 148/93
--- NOTE | 2016-07-04 13:39 | HPE ---
DATE OF ADMISSION: 07/04/2016 PRIMARY CARE PHYSICIAN: Dr. Rick Borjas. ATTENDING PHYSICIAN: Dr. Genaro Shelton. CHIEF COMPLAINT: Syncopal episode on Sunday night. HISTORY OF PRESENT ILLNESS: This is a 46-year-old male with history significant for abdominal migraines, gastroesophageal reflux disease, rheumatoid arthritis, hypothyroidism who presented to the emergency department on the night of admission with complaints of headaches, abdominal pain, syncopal episodes the day prior. The patient reports that on 07/02/2016 at approximately 7:30 p.m., the patient had an episode where he went diaphoretic, with abdominal pain. He proceeded to the bathroom where he had a bowel movement. He had about a 5 second syncopal episode. His , who is an RN witnessed this episode. She proceeded to ask him to lie down on the floor. At that time, he had another short episode of syncope lasting longer than the first episode, approximately 15 seconds. The patient woke up afterwards feeling lightheaded, and having a headache. They called 9-1-1. EMS reevaluated his vitals that night, and they were stable. They decided not to go to the emergency department at the time for evaluation because the patient's were being diverted from [facility]. On Sunday, July 03, 2016, the patient reports having headache and feeling tired all day. He took a dose of dicyclomine, which he takes as needed for his abdominal migraines. Today, he complains of having generalized headache that is located throughout his head and radiates down into his neck. He also had blurry vision since this morning. He has had two normal bowel movement today. Because of his continued symptoms, he decided to be evaluated in the emergency department after coming home from work. In the ER, they have worked him up for orthostatic hypotension, which is negative. They took a CT of the head which was negative. They also did a CT angio of the neck which showed no evidence of aneurysm, or thrombosis. He also received a EKG which showed no acute infarction. His cardiac enzymes were within normal limits. PAST MEDICAL HISTORY: Gastroesophageal reflux disease. Rheumatoid arthritis. Hypothyroidism. Abdominal migraines. PAST SURGICAL HISTORY: Tonsillectomy. Adenoidectomy. Vasectomy. FAMILY HISTORY: The patient's mother has a history of hypertension and diabetes mellitus. His sister has a blood clot disorder with recurrent deep vein thromboses (DVT)s. SOCIAL HISTORY: The patient smokes approximately half a pack of cigarettes a day for approximately 30 years. He drinks alcohol socially. He denies any recreational drug use. He lives with his and two children who are 19 and 15 years old. He has one dog, a Labrador. MEDICATIONS: - dicyclomine 10 mg as needed - levothyroxine 100 mcg daily - omeprazole 40 mg twice a day - Naproxen 500 mg twice a day - sulfasalazine 500 mg twice a day ALLERGIES: No known drug allergies. REVIEW OF SYSTEMS: Constitutional: No unexplained weight loss, no fevers. Positive for feeling tired, generalized tiredness. HEENT: Positive for blurry vision and blepharospasm spasms. Positive for headaches. Denies sinus pain, congestion, sore throat. Cardiovascular: Denies any chest pain, shortness of breath, exercise intolerance. Admits treated to two episode of syncope two days ago. Respiratory: Denies cough, shortness of breath, wheeze. Gastrointestinal: Positive for mild lower abdominal pain. Denies any nausea, vomiting, constipation, diarrhea. Denies hematochezia, melena. Admits to history of abdominal migraines. : Denies any dysuria, incontinence, hematuria. Musculoskeletal: Positive for neck pain. History of rheumatoid arthritis. Denies any joint swelling. Integumentary: Denies any skin changes, or rashes. Neurological: Denies any numbness or tingling in the extremities. Hematologic: Denies any excessive bleeding or bruising. Endocrine: Denies any polydipsia, polyuria. Admits to history of hypothyroidism. PHYSICAL EXAMINATION: Vital signs: Blood pressure 134/88, pulse is 61, respirations 18, temperature 98.2, oxygen saturations 95% on room air. Weight is 100.79 kg, height is 186 cm. General: The patient is lying comfortably in hospital bed. He is in no acute distress. HEENT: His head is normocephalic, atraumatic. His extraocular movements are intact bilaterally. His pupils are equally round and reactive to light and accommodation. His throat is without any erythema or exudates. His mucous membranes are moist. Some paraspinal muscle tenderness in the cervical area. His thyroid is within normal limits. Cardiovascular: Regular rate and rhythm, no murmurs appreciated. Respiratory: His lungs are clear to auscultation bilaterally. No wheezes, rhonchi, rales. Gastrointestinal: Normal bowel sounds appreciated throughout. He is mildly tender in the lower abdomen bilaterally. No guarding, rebound, tenderness. His abdomen is soft and nondistended. Extremities: 2+ pulses radial, pedal. No edema in the lower extremities. Skin: Warm, pink, dry. No rashes. Neurological: Cranial nerves II-XII are grossly intact. Sensation normal throughout. LABORATORY FINDINGS: WBC 7.5, hemoglobin 15.5, hematocrit 44.7, platelet count 220. Fasting glucose is 101, BUN 22, creatinine 1.19. His potassium is 4.0, sodium 140, chloride 105, carbon dioxide 30, calcium is 8.7. His troponin is less than 0.02. TSH is 12.9, free T4 1.0. Drug toxicology was negative with exception of positive cannabinoids in the urine. IMAGING STUDIES: Head CT without contrast completed on 07/03/2016 which showed no acute disease. A CT angio of the neck was completed 07/03/2016 which showed no evidence of aneurysm, cyanosis, or thrombosis. Chest x-ray was completed on 07/03/2016 which showed no acute disease. ASSESSMENT/PLAN: This is a 46-year-old male with witnessed syncopal episodes. We are admitting the patient at this time for further workup and stabilization. For his syncopal episodes, we are going to cycle his troponins and cardiac markers. The patient will be placed on telemetry. His orthostatics were negative in the ER but we will repeat them in the morning. We will also order an echocardiogram. We will also obtain an MRI and MRA of the head to rule out any strokes. For his headaches, we will continue him on his home medications. He reports having a history of abdominal migraines for which he takes dicyclomine, and we will continue that. We will also continue him on omeprazole for his gastroesophageal reflux disease. He has a history of rheumatoid arthritis, we are going to continue the sulfasalazine and pain medications for his symptoms. We will also continue his thyroid medication. For deep venous thrombosis (DVT) prophylaxis, we will start the patient on Lovenox. The plan was discussed with the patient and his who is present. They were agreeable to the plan and they had no further questions at this time. My preceptor for this patient encounter was Dr. Genaro Shelton. The preceptor was physically present in the building during the encounter and was fully available. As needed, all aspects of the patient interview, examination, medical decision making process, and medical care plan development were reviewed and approved by the preceptor. The preceptor is aware and concurs with the plan as stated in the body of this note and will attest to such by his/her cosignature. Attending Note: I was present for discussion and assisted with the development of the treatment plan for the patient above. The Resident was given guidance and the patient will be followed appropriately by an attending physician during the remaining hospital stay. LISA
--- NOTE | 2016-07-04 15:06 | DS.PDOC ---
Discharge Summary General Date of Admission Jul 04, 2016 at 00:17 Date of Discharge Jul 05, 2016 Primary Care Physician: ROBERTO KONG M.D. Discharge Summary PROCEDURES PERFORMED DURING STAY: [None.] CHIEF COMPLAINT: Syncope And Collapse ADMISSION DIAGNOSES: 1. Syncopal episode 2. Abdominal migraine 3. GERD 4. Rheumatoid arthritis 5. Hypothyroidism DISCHARGE DIAGNOSES: 1. Syncope - likely vasovagal 2. Abdominal migraine 3. GERD 4. Rheumatoid arthritis 5. Hypothyroidism HISTORY OF PRESENT ILLNESS: Patient is a 46-year-old male presenting for a syncopal episode while have bowel movement. HOSPITAL COURSE: Patient was admitted for a syncopal episode. Patient states he has a history of pre-syncopal symptoms usually associated with abdominal pain, which are usually relieved with bowel movement. On this occasion he did not have his usual abdominal pain, however felt as if he was going to pass out. He proceeded to have a bowel movement, subsequently losing consciousness. He denied any seizure activity, denied any loss of bladder or bowel control. He woke up feeling somewhat lethargic otherwise in his usual state of health, and presented to the emergency department. His workup was unremarkable including orthostatics, laboratory studies unremarkable, preliminary report of 2d echocardiogram unremarkable. He does have a history of abdominal migraines, the etiology of his syncopal episode is suspicious for a vasovagal etiology. He has been discharged with instruction not to return to work pending follow up with his PCP Dr. Kong and the official report of his 2D echocardiogram. His PCP office was called, spoke with nursing staff, Dr. Kong is away this week however there are openings on 07/06 for his follow up. DISCHARGE MEDICATIONS: Please see below. ALLERGIES: Please see below. PHYSICAL EXAMINATION ON DISCHARGE: VITAL SIGNS: Please see below. GENERAL: NAD, lying comfortably in bed HEENT: NC/AT, EOMI NECK: supple CARDIOVASCULAR EXAMINATION: +S1S2, RRR RESPIRATORY EXAMINATION: CTA B/L ABDOMINAL EXAMINATION: soft, NT, ND, +BS EXTREMITIES: no edema SKIN: no rash NEUROLOGICAL EXAMINATION: no gross focal deficits PSYCHIATRIC EXAMINATION: AAOx3 LABORATORY DATA: Please see below. DISCHARGE CONDITION: Stable DISPOSITION: Discharge home ACTIVITY: as tolerated DIET: regular as tolerated ITEMS TO FOLLOWUP ON OUTPATIENT: 1. 2D echocardiogram DISCHARGE PLAN AND INSTRUCTIONS: 1. PCP in 1-3 days 2. Unable to work pending follow up with PCP. 3. If symptoms return, please call 911 or present to emergency room. TIME SPENT ON DISCHARGE: Greater than 30 minutes. Vital Signs/I&Os Vital Signs Date Time Temp Pulse Resp B/P Pulse Ox O2 Delivery O2 Flow Rate FiO2 07/04/16 12:36 98.5 63 18 148/93 96 Room Air Laboratory Data Labs 24H Laboratory Tests 2 07/03/16 21:16: Anion Gap 5L, White Blood Count 7.5, Red Blood Count 5.05, Hemoglobin 15.5, Hematocrit 44.7, Mean Corpuscular Volume 88.5, Mean Corpuscular Hemoglobin 30.7 , Mean Corpuscular Hemoglobin Concent 34.7, Red Cell Distribution Width 12.9, Platelet Count 220, Neutrophils (%) (Auto) 46.1, Lymphocytes (%) (Auto) 38.2, Monocytes (%) (Auto) 7.4H, Eosinophils (%) (Auto) 5.5H, Basophils (%) (Auto) 0.9 , Neutrophils # (Auto) 3.5, Lymphocytes # (Auto) 3.0, Monocytes # (Auto) 0.6, Eosinophils # (Auto) 0.4, Basophils # (Auto) 0.1, Blood Urea Nitrogen 22H, Creatinine 1.19, Sodium Level 140, Potassium Level 4.0, Chloride Level 105, Carbon Dioxide Level 30, Calcium Level 8.7, Total Creatine Kinase 93, Creatine Kinase MB 1.2, Creatine Kinase MB Relative Index 1.29, Erythrocyte Sedimentation Rate 2, Free Thyroxine 1.00, Glomerular Filtration Rate > 60.0, Large Unclassified Cells # 0.1, Large Unclassified Cells % 1.8, Thyroid Stimulating Hormone (TSH) 12.900H, Troponin I < 0.02 07/03/16 21:47: Bedside Glucose (Misc Panel) 92 07/03/16 22:50: Urine Amphetamines Screen NEGATIVE, Urine Benzodiazepines Screen NEGATIVE, Urine Opiates Screen NEGATIVE, Urine Barbiturates Screen NEGATIVE, Urine Cannabinoids Screen POSITIVEH, Urine Cocaine Metabolite Screen NEGATIVE, Urine Methadone Screen NEGATIVE, Urine Tricyclic Antidepressants NEGATIVE 07/04/16 06:38: Anion Gap 8, Calcium Level 9.0, Total Creatine Kinase 71, Creatine Kinase MB 1.0 , Creatine Kinase MB Relative Index 1.40, Glomerular Filtration Rate > 60.0, Troponin I < 0.02, Aspartate Amino Transf (AST/SGOT) 13L, Alanine Aminotransferase (ALT/SGPT) 20, Alkaline Phosphatase 57, Total Bilirubin 0.5, Direct Bilirubin < 0.1, Albumin 3.8, Albumin/Globulin Ratio 1.31, Total Protein 6.7 CBC/BMP Laboratory Tests 07/03/16 21:16 Calcium Level 8.7, Total Creatine Kinase 93, Red Blood Count 5.05, Mean Corpuscular Volume 88.5, Mean Corpuscular Hemoglobin 30.7, Mean Corpuscular Hemoglobin Concent 34.7, Red Cell Distribution Width 12.9, Neutrophils (%) (Auto ) 46.1, Lymphocytes (%) (Auto) 38.2, Monocytes (%) (Auto) 7.4 H, Eosinophils (% ) (Auto) 5.5 H, Basophils (%) (Auto) 0.9, Neutrophils # (Auto) 3.5, Lymphocytes # (Auto) 3.0, Monocytes # (Auto) 0.6, Eosinophils # (Auto) 0.4, Basophils # ( Auto) 0.1 07/04/16 06:38 Red Blood Count 5.17, Mean Corpuscular Volume 87.4, Mean Corpuscular Hemoglobin 30.7, Mean Corpuscular Hemoglobin Concent 35.1, Red Cell Distribution Width 13.0 07/04/16 11:49 Red Blood Count 5.13, Mean Corpuscular Volume 88.5, Mean Corpuscular Hemoglobin 30.9, Mean Corpuscular Hemoglobin Concent 34.9, Red Cell Distribution Width 12.9 FSBS Laboratory Tests Test 07/03/16 21:47 Range/Units Bedside Glucose (Misc Panel) 92 70-105 MG/DL Medications Scheduled Levothyroxine Sodium (Synthroid) 100 Mcg Tab 100 MCG PO QHS Naproxen Sodium (Naproxen Sodium) 500 Mg Tab 500 MG PO BID Omeprazole (Omeprazole) 40 Mg Cap 40 MG PO BID Sulfasalazine (Sulfasalazine) 500 Mg Tab 500 MG PO BID Scheduled PRN Acetaminophen (Acetaminophen) 500 Mg Tab 1,000 MG PO Q6H PRN PRN PAIN Dicyclomine HCl (Dicyclomine HCl) 10 Mg Cap 10 MG PO Q6H PRN PRN CRAMPS Allergies Coded Allergies: No Known Allergies (Unverified , 07/04/16) HAYDEN SALGADO MD Jul 04, 2016 15:06
--- NOTE | 2016-07-05 08:19 | ECGEPIP ---
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
--- NOTE | 2016-07-06 06:23 | ECHO ---
DATE OF PROCEDURE: 07/04/2016 DATE OF : 1970 AGE: 46 REFERRING PROVIDER: Dr. Robert Navarrete. PATIENT LOCATION: Emergency department. REASON FOR ECHOCARDIOGRAM: Syncope. 2D MEASUREMENTS: IVS: 1.2 cm LV: 4.4 cm LVPW: 1.2 cm LA: 4.0 cm Aorta: 3.5 cm IVC: 1.8 cm DOPPLER MEASUREMENTS: Peak velocity across the aortic valve: 1.3 m/s Peak velocity across the LVOT: 1.0 m/s Mitral E: 0.70 Mitral A: 0.51 Ratio 1.4 Maximum tricuspid valve velocity: 1.92 m/s 2D COMMENTS: 1. Normal left ventricular size, wall thickness and normal global left ventricular systolic function. Left ventricular systolic ejection fraction is estimated at 60% to 65%. 2. Borderline enlarged left atrium. Normal right atrium and right ventricle. 3. The atrial septum appeared to be normal without evidence of defect or shunt. 4. Trace pericardial effusion noted posteriorly at the base of the left ventricle, no evidence of cardiac tamponade. 5. Normal aortic valve, mitral valve, and tricuspid valve, as well as the pulmonic valve. The proximal pulmonary artery branches were not well visualized. 6. The inferior vena cava was normal in size, central venous pressure is most likely normal. IMPRESSION: 1. Normal global left ventricular systolic and diastolic function. 2. Mild mitral regurgitation. 3. Trace tricuspid regurgitation with a normal calculated pulmonary artery systolic pressure. 4. Trace pericardial effusion was noted at the base of the left ventricle, no evidence of cardiac tamponade.
--- NOTE | 2016-07-06 13:24 | EDDOCDS ---
Nurse's Notes [facility] Name: Reza Varela Age: 46 yrs Sex: Male : 1970 Arrival Date: 07/03/2016 Time: 20:35 Bed Admit Hold Private MD: Rick Borjas M.D. Diagnosis: Syncope and collapse;Headache Presentation: 07/03 20:43 Presenting complaint: Patient states: syncopal episode twice last night lasted 30 secs. rs3 no syncope today. reports of headache, generalized weakness, neck pain, blurred vision since this morning. Acute neurological deficits are not present. Patient denies the presence of acute pain prior to syncopal episode. The patient is not diaphoretic or experienced diaphoresis prior to the syncopal episode The patient denies shortness of breath. The patient denies recent surgery. Adult Sepsis Screening: The patient does not have new or worsening altered mentation. Patient's respiratory rate is less than 22. Systolic blood pressure is greater than 100. Patient has a qSOFA score of 0- Negative Sepsis Screen. Suicide/Homicide risk assessment- the patient denies having any suicidal and/or homicidal ideations and does not present with any other emotional, behavioral or mental health complaints. 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 Transition of care: patient was not received from another setting of care. 20:43 Acuity: JANY Level 3 rs3 20:43 Method Of Arrival: Walkin/Carried/Asstd rs3 Triage Assessment: 20:46 General: Appears in no apparent distress. Pain: Location: neck pain. HIV screening NA rs3 for this visit Offered previously. Neurological: Reports headache. Historical: - Allergies: no known allergies; - Home Meds: 1. dicyclomine 10 mg Oral cap 1 cap as needed 2. levothyroxine 100 mcg Oral tab 1 tab once daily 3. omeprazole 40 mg Oral cpDR 1 cap 2 times per day for Gastroesophageal Reflux 4. naproxen 500 mg Oral tab 1 tab 2 times per day 5. sulfasalazine 500 mg Oral tab 1 tab twice a day for Rheumatoid Arthritis - PMHx: GERD; Rheumatoid Arthritis; Hypothyroidism; - PSHx: Tonsillectomy; Adenoidectomy; Vasectomy; - Social history: Smoking status: Patient uses tobacco products, light tobacco smoker. No barriers to communication noted, The patient speaks fluent Albanian. - Family history: No immediate family members are acutely ill. - : The pt / caregiver states he / she is not on anticoagulants. Home medication list is obtained from the patient. - Exposure Risk Screening:: None identified. Screenin:28 Screening information is obtained from the patient. Fall risk: No risks identified. mv5 Assistance ADL's: requires no assistance with activities of daily living. Abuse/DV Screen: The patient / caregiver reports he/she is: not in a situation that causes fear, pain or injury. Nutritional screening: No deficits noted. Advance Directives: There is no active DNR order. home support is adequate. Assessment: 21:28 General: Appears in no apparent distress, comfortable, Behavior is cooperative, mv5 pleasant, Pt's at bedside.. Pain: Denies pain. Neurological: Level of Consciousness is awake, alert, Oriented to person, place, time, Hairspring Assembler are equal bilaterally Moves all extremities. Speech is normal, Facial symmetry appears normal. Cardiovascular: Capillary refill < 3 seconds Heart tones S1 S2 present Pulses are all present. Rhythm is sinus rhythm No ectopy. Respiratory: Airway is patent Respiratory effort is even, unlabored, Respiratory pattern is regular, symmetrical. Derm: Skin is pink, warm & dry. 22:24 General: Appears in no apparent distress, comfortable, Behavior is cooperative, mv5 pleasant, at bedside. Pain: Denies pain. Neurological: No deficits noted. Cardiovascular: Rhythm is sinus rhythm No ectopy. Respiratory: Airway is patent Respiratory effort is even, unlabored, Respiratory pattern is regular, symmetrical. Derm: Skin is pink, warm & dry. 23:12 General: Appears in no apparent distress, comfortable, Behavior is cooperative, mv5 pleasant. Pain: Location: top of head, left methodist, right frontal area, right side of the back of head, right temporal area, right occipital area and right base of the skull Pain currently is 4 out of 10 on a pain scale. Neurological: No deficits noted. Cardiovascular: Rhythm is sinus rhythm No ectopy. Respiratory: Airway is patent Respiratory effort is even, unlabored, Respiratory pattern is regular, symmetrical. Derm: Skin is pink, warm & dry. 07/04 00:29 General: Appears in no apparent distress, comfortable, Behavior is cooperative, mv5 pleasant. Neurological: No deficits noted. Respiratory: Airway is patent Respiratory effort is even, unlabored, Respiratory pattern is regular, symmetrical. Derm: Skin is pink, warm & dry. 01:29 General: Appears in no apparent distress, comfortable, Behavior is cooperative, mv5 pleasant. Neurological: Level of Consciousness is awake, alert, Oriented to person, place, time, Moves all extremities. Speech is normal, Facial symmetry appears normal. Cardiovascular: Rhythm is sinus rhythm No ectopy. Respiratory: Airway is patent Respiratory effort is even, unlabored, Respiratory pattern is regular, symmetrical. Derm: Skin is pink, warm & dry. 02:20 General: Appears in no apparent distress, comfortable. Neurological: No deficits noted. mv5 Cardiovascular: Rhythm is sinus rhythm No ectopy. Derm: Skin is pink, warm & dry. 03:20 General: Appears in no apparent distress. Neurological: No deficits noted. mv5 Cardiovascular: Rhythm is sinus rhythm No ectopy. Respiratory: No deficits noted. Derm: Skin is pink, warm & dry. 04:23 General: Appears in no apparent distress, Behavior is cooperative, restless. mv5 Neurological: No deficits noted. Cardiovascular: Rhythm is sinus rhythm No ectopy. Derm: Skin is pink, warm & dry. 05:29 General: Appears in no apparent distress, comfortable. Neurological: No deficits noted. mv5 Cardiovascular: Rhythm is sinus rhythm No ectopy. Respiratory: Derm: Skin is pink, warm & dry. 06:35 General: Appears in no apparent distress, comfortable. Neurological: No deficits noted. mv5 Cardiovascular: Rhythm is sinus rhythm No ectopy. Respiratory: Airway is patent Respiratory effort is even, unlabored, Respiratory pattern is regular, symmetrical. Derm: Skin is pink, warm & dry. Vital Signs: 07/03 20:37 BP 142 / 96; Pulse 72; Resp 18; Temp 98.2(O); Pulse Ox 96% on R/A; Weight 100.79 kg kb5 (M); Height 5 ft. 11 in. (180.34 cm) (R); Pain 5/10; 21:27 BP 133 / 91 Supine; Pulse 63; Resp 16; Pulse Ox 97% ; mv5 21:27 BP 144 / 99 Sitting; Pulse 62; Resp 16; Pulse Ox 97% ; mv5 21:27 BP 150 / 101 Standing; Pulse 61; Resp 18; Pulse Ox 96% ; mv5 21:30 BP 145 / 90 (auto/); mv5 21:30 Pulse 62 MON; Pulse Ox 97% ; mv5 21:45 BP 149 / 85 (auto/); mv5 21:45 Pulse 62 MON; Pulse Ox 95% ; mv5 22:00 BP 138 / 93 (auto/); mv5 22:00 Pulse 70 MON; Pulse Ox 96% ; mv5 22:15 BP 128 / 87 (auto/); mv5 22:15 Pulse 63 MON; Pulse Ox 94% ; mv5 22:30 BP 126 / 86 (auto/); mv5 22:30 Pulse 62 MON; Pulse Ox 96% ; mv5 22:48 BP 136 / 87 (auto/); mv5 22:49 Pulse 61 MON; Pulse Ox 97% ; mv5 23:00 BP 134 / 88 (auto/); mv5 23:00 Pulse 57 MON; Pulse Ox 95% ; mv5 23:15 BP 133 / 93 (auto/); mv5 23:15 Pulse 55 MON; Pulse Ox 94% ; mv5 23:30 BP 124 / 76 (auto/); mv5 23:30 Pulse 63 MON; Pulse Ox 98% ; mv5 23:45 BP 128 / 85 (auto/); mv5 23:45 Pulse 60 MON; Pulse Ox 95% ; mv5 02/21 00:00 BP 107 / 62 (auto/); mv5 00:00 Pulse 63 MON; Pulse Ox 95% ; mv5 00:15 BP 115 / 70 (auto/); mv5 00:15 Pulse 66 MON; Pulse Ox 96% ; mv5 00:30 BP 116 / 72 (auto/); mv5 00:30 Pulse 61 MON; Pulse Ox 94% ; mv5 00:45 BP 116 / 76 (auto/); mv5 00:45 Pulse 57 MON; Pulse Ox 94% ; mv5 01:00 BP 115 / 85 (auto/); mv5 01:00 Pulse 60 MON; Pulse Ox 96% ; mv5 01:15 BP 125 / 82 (auto/); mv5 01:15 Pulse 55 MON; Pulse Ox 95% ; mv5 01:30 BP 104 / 61 (auto/); mv5 01:30 Pulse 59 MON; Pulse Ox 96% ; mv5 01:45 BP 105 / 66 (auto/); mv5 01:45 Pulse 61 MON; Pulse Ox 96% ; mv5 02:00 BP 104 / 62 (auto/); mv5 02:00 Pulse 57 MON; Pulse Ox 96% ; mv5 02:15 BP 121 / 67 (auto/); mv5 02:15 Pulse 51 MON; Pulse Ox 96% ; mv5 02:30 BP 109 / 61 (auto/); mv5 02:30 Pulse 55 MON; Pulse Ox 95% ; mv5 02:45 BP 108 / 67 (auto/); mv5 02:45 Pulse 58 MON; Pulse Ox 97% ; mv5 03:00 BP 113 / 71 (auto/); mv5 03:00 Pulse 63 MON; Pulse Ox 95% ; mv5 04:18 BP 128 / 81 (auto/); mv5 04:21 Pulse 71 MON; Pulse Ox 95% ; mv5 04:30 BP 103 / 60 (auto/); mv5 04:30 Pulse 62 MON; Pulse Ox 95% ; mv5 04:45 BP 104 / 62 (auto/); mv5 04:45 Pulse 61 MON; Pulse Ox 95% ; mv5 05:00 BP 111 / 63 (auto/); mv5 05:00 Pulse 59 MON; Pulse Ox 96% ; mv5 05:15 BP 105 / 62 (auto/); mv5 05:15 Pulse 61 MON; Pulse Ox 96% ; mv5 06:20 BP 110 / 73 (auto/); mv5 06:20 Pulse 108 MON; Pulse Ox 92% ; mv5 02 20:37 Body Mass Index 30.99 (100.79 kg, 180.34 cm) kb5 Vitals: 07/03 20:37 Log In Time: July 03, 2016 at 20:00. kb5 ED Course: 20:36 Patient visited by Kiet Baxter PCA. kb5 20:36 Patient moved to Waiting kb5 20:37 Rick Borjas is Private Physician. kb5 20:40 Patient visited by Kiet Baxter PCA. kb5 20:45 Triage Initiated rs3 20:48 Patient moved to PR2 / 26 rs3 20:53 EKG done. (by ED staff). Reviewed by Damir Russell DO. ar3 20:54 Kalani Fonseca,RN is Primary Nurse. jmb 20:54 Patient moved to 3 jmb 20:56 Damir Russell DO is Attending Physician. mm11 20:56 Patient visited by Damir Russell DO. mm11 21:01 Patient visited by Caitlin Villarreal PCA. ar3 21:13 Patient visited by Damir Russell DO. mm11 21:19 Basic Metabolic Profile Sent. mv5 21:19 CBC with Diff Sent. mv5 21:19 Cardiac Injury Profile Sent. mv5 21:20 Drug Eval Toxicology ED Only Sent. mv5 21:20 Thyroid Stimulating Hormone Sent. mv5 21:20 Troponin Sent. mv5 21:28 The patient / caregiver is instructed regarding the plan of care and ED course. mv5 21:28 Inserted saline lock: 18 gauge in right antecubital area and blood collected. The mv5 patient tolerated the procedure well. 21:49 Patient visited by Kalani Fonseca,ARBEN. mv5 22:01 [facility] Payment Agreement was scanned into [employer] and attached to record. zo 22:24 Patient visited by Kalani Fonseca,RN. mv5 23:12 Patient visited by Kalani Fonseca,ARBEN. mv5 23:43 Patient visited by Damir Russell DO. mm11 23:55 CT Head Without Contrast Returned. EDMS 23:55 CT Angio Neck: r/o carotid dissection Returned. EDMS 07/04 00:21 Genaro Shelton DO is Hospitalizing Provider. mm11 02:10 Patient moved to Admit Hold nn1 08:47 Chest, 1 View Returned. EDMS 09:29 MRA BRAIN W/O CONTRAST Returned. EDMS 09:29 MRI Brain without Contrast Returned. EDMS 13:38 T-Sheet-- Draft Copy was scanned into [employer] and attached to record. gb 13:38 ECG/EKG was scanned into [employer] and attached to record. gb 07/05 08:41 EKG-ADULT Returned. EDMS 02 07:04 ECHOCARD,DOPPLER/COLOR FLOW Returned. EDMS Point of Care Testing: Blood Glucose: 07/03 21:49 Blood Glucose: 92 mg/dL; mv5 Ranges: Order Results: Lab Order: Basic Metabolic Profile; SPEC'M 07/03/16 21:16 Test: GLUCOSE, FASTING; Value: 101; Range: 70-105; Units: MG/DL; Status: F Test: BLOOD UREA NITROGEN; Value: 22; Range: 7-18; Abnormal: Above high normal; Units: MG/DL; Status: F Test: CREATININE FOR GFR; Value: 1.19; Range: 0.70-1.30; Units: MG/DL; Status: F Test: GLOMERULAR FILTRATION RATE; Value: > 60.0; Range: >60; Status: F Test: SODIUM LEVEL; Value: 140; Range: 136-145; Units: MEQ/L; Status: F Test: POTASSIUM SERUM; Value: 4.0; Range: 3.5-5.1; Units: MEQ/L; Status: F Test: CHLORIDE LEVEL; Value: 105; Range: 98-107; Units: MEQ/L; Status: F Test: CARBON DIOXIDE LEVEL; Value: 30; Range: 21-32; Units: MEQ/L; Status: F Test: ANION GAP; Value: 5; Range: 8-16; Abnormal: Below low normal; Units: MEQ/L; Status: F Test: CALCIUM LEVEL; Value: 8.7; Range: 8.5-10.1; Units: MG/DL; Status: F Test Note: ; Units are mL/min/1.73 m2 Chronic Kidney Disease Staging per NKF: Stage I & II GFR >=60 Normal to Mildly Decreased Stage III GFR 30-59 Moderately Decreased Stage IV GFR 15-29 Severely Decreased Stage V GFR <15 Very Little GFR Left ESRD GFR <15 on CARE DIRECTOR Lab Order: CBC with Diff; SPEC'M 07/03/16 21:16 Test: WHITE BLOOD COUNT; Value: 7.5; Range: 4.0-10.0; Units: K/mm3; Status: F Test: RED BLOOD COUNT; Value: 5.05; Range: 4.30-6.10; Units: M/mm3; Status: F Test: HEMOGLOBIN; Value: 15.5; Range: 14.0-18.0; Units: g/dl; Status: F Test: HEMATOCRIT; Value: 44.7; Range: 42.0-52.0; Units: %; Status: F Test: MEAN CORPUSCULAR VOLUME; Value: 88.5; Range: 80.0-96.0; Units: fl; Status: F Test: MEAN CORPUSCULAR HEMOGLOBIN; Value: 30.7; Range: 27.0-33.0; Units: pg; Status: F Test: MEAN CORPUSCULAR HGB CONC; Value: 34.7; Range: 32.0-36.5; Units: g/dl; Status: F Test: RED CELL DISTRIBUTION WIDTH; Value: 12.9; Range: 11.5-14.5; Units: %; Status: F Test: PLATELET COUNT, AUTOMATED; Value: 220; Range: 150-450; Units: k/mm3; Status: F Test: NEUTROPHILS %; Value: 46.1; Range: 36.0-66.0; Units: %; Status: F Test: LYMPH %; Value: 38.2; Range: 24.0-44.0; Units: %; Status: F Test: MONO %; Value: 7.4; Range: 0.0-5.0; Abnormal: Above high normal; Units: %; Status: F Test: EOS %; Value: 5.5; Range: 0.0-3.0; Abnormal: Above high normal; Units: %; Status: F Test: BASO %; Value: 0.9; Range: 0.0-1.0; Units: %; Status: F Test: LARGE UNSTAINED CELL %; Value: 1.8; Range: 0.0-4.0; Units: %; Status: F Test: NEUTROPHILS #; Value: 3.5; Range: 1.8-7.7; Units: K/mm3; Status: F Test: LYMPH #; Value: 3.0; Range: 1.5-4.5; Units: K/mm3; Status: F Test: MONO #; Value: 0.6; Range: 0.0-0.8; Units: K/mm3; Status: F Test: EOS #; Value: 0.4; Range: 0.0-0.50; Units: K/mm3; Status: F Test: BASO #; Value: 0.1; Range: 0.0-0.2; Units: K/mm3; Status: F Test: LARGE UNSTAINED CELL #; Value: 0.1; Range: 0.0-0.4; Units: K/mm3; Status: F Lab Order: Cardiac Injury Profile; SPEC'M 07/03/16 21:16 Test: CPK CREATINE PHOSPHOKINASE; Value: 93; Range: 39-308; Units: U/L; Status: F Test: CK-MB VALUE MASS; Value: 1.2; Range: 0.0-3.6; Units: NG/ML; Status: F Test: MB/CK RELATIVE INDEX; Value: 1.29; Range: < OR =4; Status: F Test Note: ; DIAGNOSIS CRITERIA MMB ng/ml Relative Index (RI) NON-AMI < or = 5 N/A PLASENCIA ZONE > 5 < or = 4 AMI > 5 > 4 Lab Order: Drug Eval Toxicology ED Only; SPEC'M 07/03/16 22:50 Test: AMPHETAMINES LEVEL URINE; Value: NEGATIVE; Range: NEGATIVE; Status: F Test: BARBITURATES URINE; Value: NEGATIVE; Range: NEGATIVE; Status: F Test: BENZODIAZEPINES URINE; Value: NEGATIVE; Range: NEGATIVE; Status: F Test: CANNABINOIDS URINE; Value: POSITIVE; Range: NEGATIVE; Abnormal: Above high normal; Status: F Test: COCAINE METABOLITE URINE; Value: NEGATIVE; Range: NEGATIVE; Status: F Test: METHADONE URINE; Value: NEGATIVE; Range: NEGATIVE; Status: F Test: OPIATES URINE; Value: NEGATIVE; Range: NEGATIVE; Status: F Test: TRICYCLIC ANTIDEPRESS URINE; Value: NEGATIVE; Range: NEGATIVE; Status: F Test Note: ; FALSE POSITIVE RESULTS CAN BE CAUSED BY THE USE OF PANTOPRAZOLE (PROTONIX). Lab Order: Thyroid Stimulating Hormone; SPEC'M 07/03/16 21:16 Test: THYROID STIMULATING HORMONE; Value: 12.900; Range: 0.358-3.740; Abnormal: Above high normal; Units: uIU/ML; Status: F Lab Order: Troponin; SPEC'M 07/03/16 21:16 Test: TROPONIN I; Value: < 0.02; Range: < 0.10; Units: NG/ML; Status: F Test Note: ; Troponin I Reference Interval for Siemens Serious [place] LOCI: 99th Percentile= 0.00-0.045 ng/ml Risk Stratification: <= 0.10 ng/ml Decreased Risk for Adverse Clinical Events. 0.10-1.50 ng/ml Increased Risk for Adverse Clinical Events. Evaluation of additional criterion and/or repeat testing in 2-6 hours is suggested to rule out myocardial damage. >= 1.50 ng/ml Indicative of Myocardial Injury. Lab Order: Fingerstick Blood Sugar; [facility] 07/03/16 21:47 Test: BEDSIDE GLUCOSE; Value: 92; Range: 70-105; Units: MG/DL; Status: F Lab Order: FREE T4; [facility] 07/03/16 21:16 Test: FREE T4; Value: 1.00; Range: 0.76-1.46; Units: NG/DL; Status: F Lab Order: ERYTHROCYTE SEDIMENTATION RATE; [facility] 07/03/16 21:16 Test: ERYTHROCYTE SEDIMENTATION RATE; Value: 2; Range: 0-15; Units: mm/hr; Status: F Lab Order: CARDIAC MARKER PANEL; [facility] 07/04/16 06:38 Test: CPK CREATINE PHOSPHOKINASE; Value: 71; Range: 39-308; Units: U/L; Status: F Test: CK-MB VALUE MASS; Value: 1.0; Range: 0.0-3.6; Units: NG/ML; Status: F Test: MB/CK RELATIVE INDEX; Value: 1.40; Range: < OR =4; Status: F Test: TROPONIN I; Value: < 0.02; Range: < 0.10; Units: NG/ML; Status: F Test Note: ; DIAGNOSIS CRITERIA MMB ng/ml Relative Index (RI) NON-AMI < or = 5 N/A PLASENCIA ZONE > 5 < or = 4 AMI > 5 > 4 Lab Order: COMPLETE BLOOD COUNT; [facility] 07/04/16 06:38 Test: WHITE BLOOD COUNT; Value: 5.8; Range: 4.0-10.0; Units: K/mm3; Status: F Test: RED BLOOD COUNT; Value: 5.17; Range: 4.30-6.10; Units: M/mm3; Status: F Test: HEMOGLOBIN; Value: 15.9; Range: 14.0-18.0; Units: g/dl; Status: F Test: HEMATOCRIT; Value: 45.2; Range: 42.0-52.0; Units: %; Status: F Test: MEAN CORPUSCULAR VOLUME; Value: 87.4; Range: 80.0-96.0; Units: fl; Status: F Test: MEAN CORPUSCULAR HEMOGLOBIN; Value: 30.7; Range: 27.0-33.0; Units: pg; Status: F Test: MEAN CORPUSCULAR HGB CONC; Value: 35.1; Range: 32.0-36.5; Units: g/dl; Status: F Test: RED CELL DISTRIBUTION WIDTH; Value: 13.0; Range: 11.5-14.5; Units: %; Status: F Test: PLATELET COUNT, AUTOMATED; Value: 211; Range: 150-450; Units: k/mm3; Status: F Lab Order: COMPLETE BLOOD COUNT; [facility]07/04/16 11:49 Test: WHITE BLOOD COUNT; Value: 6.4; Range: 4.0-10.0; Units: K/mm3; Status: F Test: RED BLOOD COUNT; Value: 5.13; Range: 4.30-6.10; Units: M/mm3; Status: F Test: HEMOGLOBIN; Value: 15.8; Range: 14.0-18.0; Units: g/dl; Status: F Test: HEMATOCRIT; Value: 45.4; Range: 42.0-52.0; Units: %; Status: F Test: MEAN CORPUSCULAR VOLUME; Value: 88.5; Range: 80.0-96.0; Units: fl; Status: F Test: MEAN CORPUSCULAR HEMOGLOBIN; Value: 30.9; Range: 27.0-33.0; Units: pg; Status: F Test: MEAN CORPUSCULAR HGB CONC; Value: 34.9; Range: 32.0-36.5; Units: g/dl; Status: F Test: RED CELL DISTRIBUTION WIDTH; Value: 12.9; Range: 11.5-14.5; Units: %; Status: F Test: PLATELET COUNT, AUTOMATED; Value: 213; Range: 150-450; Units: k/mm3; Status: F Lab Order: BASIC METABOLIC PROFILE; [facility]07/04/16 06:38 Test: GLUCOSE, FASTING; Value: 101; Range: 70-105; Units: MG/DL; Status: F Test: BLOOD UREA NITROGEN; Value: 18; Range: 7-18; Units: MG/DL; Status: F Test: CREATININE FOR GFR; Value: 1.07; Range: 0.70-1.30; Units: MG/DL; Status: F Test: GLOMERULAR FILTRATION RATE; Value: > 60.0; Range: >60; Status: F Test: SODIUM LEVEL; Value: 141; Range: 136-145; Units: MEQ/L; Status: F Test: POTASSIUM SERUM; Value: 3.9; Range: 3.5-5.1; Units: MEQ/L; Status: F Test: CHLORIDE LEVEL; Value: 106; Range: 98-107; Units: MEQ/L; Status: F Test: CARBON DIOXIDE LEVEL; Value: 27; Range: 21-32; Units: MEQ/L; Status: F Test: ANION GAP; Value: 8; Range: 8-16; Units: MEQ/L; Status: F Test: CALCIUM LEVEL; Value: 9.0; Range: 8.5-10.1; Units: MG/DL; Status: F Test Note: ; Units are mL/min/1.73 m2 Chronic Kidney Disease Staging per NKF: Stage I & II GFR >=60 Normal to Mildly Decreased Stage III GFR 30-59 Moderately Decreased Stage IV GFR 15-29 Severely Decreased Stage V GFR <15 Very Little GFR Left ESRD GFR <15 on CARE DIRECTOR Lab Order: LIVER PROFILE; [facility]' 07/04/16 06:38 Test: AST/SGOT; Value: 13; Range: 15-37; Abnormal: Below low normal; Units: U/L; Status: F Test: ALT/SGPT; Value: 20; Range: 12-78; Units: U/L; Status: F Test: ALKALINE PHOSPHATASE; Value: 57; Range: 45-117; Units: U/L; Status: F Test: BILIRUBIN,TOTAL; Value: 0.5; Range: 0.2-1.0; Units: MG/DL; Status: F Test: BILIRUBIN,DIRECT; Value: < 0.1; Range: 0.0-0.2; Units: MG/DL; Status: F Test: TOTAL PROTEIN; Value: 6.7; Range: 6.4-8.2; Units: GM/DL; Status: F Test: ALBUMIN; Value: 3.8; Range: 3.2-5.2; Units: GM/DL; Status: F Test: ALBUMIN/GLOBULIN RATIO; Value: 1.31; Range: 1.00-1.93; Status: F Radiology Order: EKG-ADULT Test: EKG-ADULT REASON FOR EXAMINATION: Syncope; Stationary ECG Study; [facility] - ED; ; Test Date: 2016-07-03; Pat Name: REZA VARELA Department:; Room: [place] [address]; Gender: M Production Finisher: jennie; : 1970 Requested By: DAMIR Pak; Order Number: [id number] Reading MD: Valeria Cortés; Measurements; Intervals [place]; Rate: 59 P: 46; UT: 197 QRS: -26; QRSD: 90 T: 17; QT: 368; QTc: 367; Interpretive Statements; SINUS BRADYCARDIA; BORDERLINE LEFT AXIS DEVIATION; POSSIBLE RIGHT VENTRICULAR CONDUCTION DELAY; DECREASED RATE 04/30/11; Electronically Signed On 07-05-2016 8:19:31 EST by Valeria Cortés; Radiology Order: CT Head Without Contrast Test: CT Head Without Contrast REASON FOR EXAMINATION: Syncope; ; CT of the head; Clinical history: syncope.; Technique: Multiple axial CT images were obtained through the head without administration of contrast; .; Findings: The ventricles and sulci are symmetric bilaterally. There is no evidence of acute hemorrhag; e or infarct. There is no midline shift, mass effect, or extra-axial fluid collection. The osseous st; ructures are unremarkable. The visualized paranasal sinuses and mastoid air cells are clear.; Impression: Negative study.; ; Radiology Order: Chest, 1 View Test: Chest, 1 View REASON FOR EXAMINATION: Syncope; Clinical: Syncope .; ; Comparison: 09/20/2015 .; ; Findings:; The mediastinum and cardiac silhouette are stable and within normal limits for; portable technique. The lung [place] are clear without acute consolidation,; effusion, or pneumothorax. Skeletal structures are intact.; ; Impression:; Normal portable chest x-ray; ; ; Signed by; Marbin Eubanks MD 07/04/2016 08:24 A; Radiology Order: CT Angio Neck: r/o carotid dissection Test: CT Angio Neck: r/o carotid dissection REASON FOR EXAMINATION: NECK PAIN; ; Clinical history:, syncope, neck pain.; Technique: Multiple axial CT images were obtained through the neck after a bolus of nonionic intraven; ous contrast. Coronal and sagittal reconstructed images were also obtained.; Findings: The visualized intracerebral arterial structures, extending inferiorly through the carotid; and vertebrobasilar arterial systems, and into the upper thorax demonstrate normal caliber and contou; r. There is no evidence of aneurysm, stenosis, or thrombosis. The osseous structures are unremarkable; .; Impression: Unremarkable CT angiogram of the neck.; ; Radiology Order: ECHOCARD,DOPPLER/COLOR FLOW Test: ECHOCARD,DOPPLER/COLOR FLOW DATE OF PROCEDURE: 07/04/2016; ; DATE OF : 1970; AGE: 46; ; REFERRING PROVIDER: Dr. Robert Navarrete.; ; PATIENT LOCATION: Emergency department.; ; REASON FOR ECHOCARDIOGRAM: Syncope.; ; 2D MEASUREMENTS:; IVS: 1.2 cm; LV: 4.4 cm; LVPW: 1.2 cm; LA: 4.0 cm; Aorta: 3.5 cm; IVC: 1.8 cm; ; DOPPLER MEASUREMENTS:; Peak velocity across the aortic valve: 1.3 m/s; Peak velocity across the LVOT: 1.0 m/s; Mitral E: 0.70 Mitral A: 0.51 Ratio 1.4; Maximum tricuspid valve velocity: 1.92 m/s; ; 2D COMMENTS:; 1. Normal left ventricular size, wall thickness and normal global left; ventricular systolic function. Left ventricular systolic ejection fraction is; estimated at 60% to 65%.; 2. Borderline enlarged left atrium. Normal right atrium and right ventricle.; 3. The atrial septum appeared to be normal without evidence of defect or shunt.; ; 4. Trace pericardial effusion noted posteriorly at the base of the left; ventricle, no evidence of cardiac tamponade.; 5. Normal aortic valve, mitral valve, and tricuspid valve, as well as the; pulmonic valve. The proximal pulmonary artery branches were not well visualized.; ; 6. The inferior vena cava was normal in size, central venous pressure is most; likely normal.; ; IMPRESSION:; 1. Normal global left ventricular systolic and diastolic function.; 2. Mild mitral regurgitation.; 3. Trace tricuspid regurgitation with a normal calculated pulmonary artery; systolic pressure.; 4. Trace pericardial effusion was noted at the base of the left ventricle, no; evidence of cardiac tamponade.; Radiology Order: MRA BRAIN W/O CONTRAST Test: MRA BRAIN W/O CONTRAST REASON FOR EXAMINATION: syncope; MRA BRAIN WITHOUT CONTRAST:; ; HISTORY: Syncope.; ; 3D [id number] MR angiography was performed at the level of the [place] of; [place]. There is no aneurysm, arteriovenous malformation or atherosclerotic; lesion. Major intracranial vessels are patent. The vertebral arteries are equal; in size.; ; IMPRESSION:; ; Normal MRA brain.; ; ; Signed by; Sidney Fuller MD 07/04/2016 09:09 A; Radiology Order: MRI Brain without Contrast Test: MRI Brain without Contrast REASON FOR EXAMINATION: syncope; MRI BRAIN WITHOUT CONTRAST:; ; HISTORY: Syncope.; ; COMPARISON: CT 07/03/2016.; ; There are no areas of abnormal signal intensity in the brain. There is no; intraparenchymal hemorrhage, infarct, mass or midline shift. The sella turcica; is partially empty. The ventricular system is normal in appearance. There is no; extracerebral collection. Minimal mucosal thickening is present in the left; maxillary sinus.; ; IMPRESSION:; ; There is no intracranial lesion.; ; ; Signed by; Sidney Fuller MD 07/04/2016 09:08 A; Outcome: 07/04 00:22 Decision to Hospitalize by Provider. mm11 12:23 Patient left the ED. [facility] Signatures: Dispatcher [employer] Nila Chamorro RN RN [facility] Sherley Mcgarry, Minh Rodriguez Kristopher, NURSE OFFICE NURSE OFFICE kb5 Damir Russell DO DO mm11 Anny Carlisle RN RN rs3 Caitlin Villarreal, NURSE OFFICE NURSE OFFICE ar3 Srinivas Richards RN RN jmb Nunez, NikkoleRN RN nn1 Kalani FonsecaRN RN mv5 Chart Complete MTDD
--- NOTE | 2016-07-06 13:24 | EDDOCDS ---
Physician Documentation [facility] Name: Walt Varela Age: 46 yrs Sex: Male : 1970 Arrival Date: 07/03/2016 Time: 20:35 Bed Admit Hold Private MD: Rick Borjas M.D. Disposition: 07/04/16 00:22 Hospitalization ordered by Genaro Shelton for Inpatient Admission. Preliminary diagnosis are Syncope and collapse, Headache. - Bed requested for Admit. - Status is Inpatient Admission. mcp - Condition is Stable. - Problem is an acute exacerbation. - Symptoms have improved. Historical: - Allergies: no known allergies; - Home Meds: 1. dicyclomine 10 mg Oral cap 1 cap as needed 2. levothyroxine 100 mcg Oral tab 1 tab once daily 3. omeprazole 40 mg Oral cpDR 1 cap 2 times per day for Gastroesophageal Reflux 4. naproxen 500 mg Oral tab 1 tab 2 times per day 5. sulfasalazine 500 mg Oral tab 1 tab twice a day for Rheumatoid Arthritis - PMHx: GERD; Rheumatoid Arthritis; Hypothyroidism; - PSHx: Tonsillectomy; Adenoidectomy; Vasectomy; - Social history: Smoking status: Patient uses tobacco products, light tobacco smoker. No barriers to communication noted, The patient speaks fluent Korean. - Family history: No immediate family members are acutely ill. - : The pt / caregiver states he / she is not on anticoagulants. Home medication list is obtained from the patient. - Exposure Risk Screening:: None identified. Vital Signs: 07/03 20:37 BP 142 / 96; Pulse 72; Resp 18; Temp 98.2(O); Pulse Ox 96% on R/A; Weight 100.79 kg / kb5 222.2 lbs (M); Height 5 ft. 11 in. (180.34 cm) (R); Pain 5/10; 21:27 BP 133 / 91 Supine; Pulse 63; Resp 16; Pulse Ox 97% ; mv5 21:27 BP 144 / 99 Sitting; Pulse 62; Resp 16; Pulse Ox 97% ; mv5 21:27 BP 150 / 101 Standing; Pulse 61; Resp 18; Pulse Ox 96% ; mv5 21:30 BP 145 / 90 (auto/); mv5 21:30 Pulse 62 MON; Pulse Ox 97% ; mv5 21:45 BP 149 / 85 (auto/); mv5 21:45 Pulse 62 MON; Pulse Ox 95% ; mv5 22:00 BP 138 / 93 (auto/); mv5 22:00 Pulse 70 MON; Pulse Ox 96% ; mv5 22:15 BP 128 / 87 (auto/); mv5 22:15 Pulse 63 MON; Pulse Ox 94% ; mv5 22:30 BP 126 / 86 (auto/); mv5 22:30 Pulse 62 MON; Pulse Ox 96% ; mv5 22:48 BP 136 / 87 (auto/); mv5 22:49 Pulse 61 MON; Pulse Ox 97% ; mv5 23:00 BP 134 / 88 (auto/); mv5 23:00 Pulse 57 MON; Pulse Ox 95% ; mv5 23:15 BP 133 / 93 (auto/); mv5 23:15 Pulse 55 MON; Pulse Ox 94% ; mv5 23:30 BP 124 / 76 (auto/); mv5 23:30 Pulse 63 MON; Pulse Ox 98% ; mv5 23:45 BP 128 / 85 (auto/); mv5 23:45 Pulse 60 MON; Pulse Ox 95% ; mv5 02/21 00:00 BP 107 / 62 (auto/); mv5 00:00 Pulse 63 MON; Pulse Ox 95% ; mv5 00:15 BP 115 / 70 (auto/); mv5 00:15 Pulse 66 MON; Pulse Ox 96% ; mv5 00:30 BP 116 / 72 (auto/); mv5 00:30 Pulse 61 MON; Pulse Ox 94% ; mv5 00:45 BP 116 / 76 (auto/); mv5 00:45 Pulse 57 MON; Pulse Ox 94% ; mv5 01:00 BP 115 / 85 (auto/); mv5 01:00 Pulse 60 MON; Pulse Ox 96% ; mv5 01:15 BP 125 / 82 (auto/); mv5 01:15 Pulse 55 MON; Pulse Ox 95% ; mv5 01:30 BP 104 / 61 (auto/); mv5 01:30 Pulse 59 MON; Pulse Ox 96% ; mv5 01:45 BP 105 / 66 (auto/); mv5 01:45 Pulse 61 MON; Pulse Ox 96% ; mv5 02:00 BP 104 / 62 (auto/); mv5 02:00 Pulse 57 MON; Pulse Ox 96% ; mv5 02:15 BP 121 / 67 (auto/); mv5 02:15 Pulse 51 MON; Pulse Ox 96% ; mv5 02:30 BP 109 / 61 (auto/); mv5 02:30 Pulse 55 MON; Pulse Ox 95% ; mv5 02:45 BP 108 / 67 (auto/); mv5 02:45 Pulse 58 MON; Pulse Ox 97% ; mv5 03:00 BP 113 / 71 (auto/); mv5 03:00 Pulse 63 MON; Pulse Ox 95% ; mv5 04:18 BP 128 / 81 (auto/); mv5 04:21 Pulse 71 MON; Pulse Ox 95% ; mv5 04:30 BP 103 / 60 (auto/); mv5 04:30 Pulse 62 MON; Pulse Ox 95% ; mv5 04:45 BP 104 / 62 (auto/); mv5 04:45 Pulse 61 MON; Pulse Ox 95% ; mv5 05:00 BP 111 / 63 (auto/); mv5 05:00 Pulse 59 MON; Pulse Ox 96% ; mv5 05:15 BP 105 / 62 (auto/); mv5 05:15 Pulse 61 MON; Pulse Ox 96% ; mv5 06:20 BP 110 / 73 (auto/); mv5 06:20 Pulse 108 MON; Pulse Ox 92% ; mv5 0220 20:37 Body Mass Index 30.99 (100.79 kg, 180.34 cm) kb5 MDM: 07/03 20:50 ECG WITH READING ER PHYS+CARDIAG ordered. EDMS 21:14 Chimney Builder Brick/Pulse Ox/q 15 min VS ordered. mm11 21:14 Accucheck ordered. mm11 21:14 IV Saline Lock ordered. mm11 21:14 Orthostatic VS ordered. mm11 21:14 Rhythm Strip to chart ordered. mm11 21:15 Basic Metabolic Profile Ordered. EDMS 21:15 CBC with Diff Ordered. EDMS 21:15 Cardiac Injury Profile Ordered. EDMS 21:15 Drug Eval Toxicology ED Only Ordered. EDMS 21:15 Thyroid Stimulating Hormone Ordered. EDMS 21:15 Troponin Ordered. EDMS 21:16 CT Head Without Contrast Ordered. EDMS 21:16 Chest, 1 View Ordered. EDMS 21:16 CT Angio Neck: r/o carotid dissection Ordered. EDMS 21:39 Financial registration complete. zo 22:01 [facility] Payment Agreement was scanned into [employer] and attached to record. zo 22:06 Fingerstick Blood Sugar Ordered. EDMS 22:07 Basic Metabolic Profile Reviewed. mm11 22:07 CBC with Diff Reviewed. mm11 22:07 Troponin Reviewed. mm11 23:21 Basic Metabolic Profile Reviewed. mm11 23:21 Drug Eval Toxicology ED Only Reviewed. mm11 23:21 Thyroid Stimulating Hormone Reviewed. mm11 23:21 Cardiac Injury Profile Reviewed. mm11 23:21 Troponin Reviewed. mm11 23:21 Fingerstick Blood Sugar Reviewed. mm11 23:42 Basic Metabolic Profile Reviewed. mm11 23:42 Thyroid Stimulating Hormone Reviewed. mm11 23:42 Cardiac Injury Profile Reviewed. mm11 23:42 Troponin Reviewed. mm11 23:42 FREE T4 Reviewed. mm11 07/04 00:11 BED REQUEST+ADM ordered. EDMS 00:13 ERYTHROCYTE SEDIMENTATION RATE Ordered. EDMS 00:18 Admission / Observation Status ordered. EDMS 00:19 CBC with Diff Reviewed. mm11 00:19 CT Head Without Contrast Reviewed. mm11 00:19 CT Angio Neck: r/o carotid dissection Reviewed. mm11 03:04 ECHOCARD,DOPPLER/COLOR FLOW ordered. EDMS 03:04 REGULAR DIET ordered. EDMS 03:04 MRA BRAIN W/O CONTRAST Ordered. EDMS 03:04 MRI Brain without Contrast Ordered. EDMS 03:06 CARDIAC MARKER PANEL Ordered. EDMS 03:06 CARDIAC MARKER PANEL Ordered. EDMS 03:08 COMPLETE BLOOD COUNT Ordered. EDMS 03:08 COMPLETE BLOOD COUNT Ordered. EDMS 03:21 BASIC METABOLIC PROFILE Ordered. EDMS 13:38 T-Sheet-- Draft Copy was scanned into [employer] and attached to record. gb 13:38 ECG/EKG was scanned into [employer] and attached to record. Point of Care Testing: Blood Glucose: 07/03 21:49 Blood Glucose: 92 mg/dL; mv5 Ranges: Signatures: Dispatcher [employer] EDMS Nila Barrios RN RN Sherley Saba, Manuel Reg Minh Garcia Matthew, DO DO mm11 Anny Carlisle RN RN rs3 Kalani Fonseca RN RN mv5 The chart was reviewed and I authenticate all verbal orders and agree with the evaluation and treatment provided.Corrections: (The following items were deleted from the chart) 23:26 23:23 FREE T4+LAB ordered. EDMS EDMS 07/04 00:14 00:01 ERYTHROCYTE SEDIMENTATION RATE+LAB ordered. EDMS EDMS 03:08 BASIC METABOLIC PROFILE ordered. EDMS EDMS 11:01 10:55 LIVER PROFILE ordered. EDMS EDMS 12:02 03:08 COMPLETE BLOOD COUNT ordered. EDMS EDMS : 07/03 22:01 [facility] Payment Agreement zo 07/04 13:38 T-Sheet-- Draft Copy gb 13:38 ECG/EKG gb Chart Complete MTDD
--- NOTE | 2016-07-06 13:24 | EDDOCDS ---
Physician Documentation [facility] Name: Walt Varela Age: 46 yrs Sex: Male : 1970 Arrival Date: 07/03/2016 Time: 20:35 Bed Admit Hold Private MD: Rick Borjas M.D. Disposition: 07/04/16 00:22 Hospitalization ordered by Genaro Shelton for Inpatient Admission. Preliminary diagnosis are Syncope and collapse, Headache. - Bed requested for Admit. - Status is Inpatient Admission. mcp - Condition is Stable. - Problem is an acute exacerbation. - Symptoms have improved. Historical: - Allergies: no known allergies; - Home Meds: 1. dicyclomine 10 mg Oral cap 1 cap as needed 2. levothyroxine 100 mcg Oral tab 1 tab once daily 3. omeprazole 40 mg Oral cpDR 1 cap 2 times per day for Gastroesophageal Reflux 4. naproxen 500 mg Oral tab 1 tab 2 times per day 5. sulfasalazine 500 mg Oral tab 1 tab twice a day for Rheumatoid Arthritis - PMHx: GERD; Rheumatoid Arthritis; Hypothyroidism; - PSHx: Tonsillectomy; Adenoidectomy; Vasectomy; - Social history: Smoking status: Patient uses tobacco products, light tobacco smoker. No barriers to communication noted, The patient speaks fluent Portuguese. - Family history: No immediate family members are acutely ill. - : The pt / caregiver states he / she is not on anticoagulants. Home medication list is obtained from the patient. - Exposure Risk Screening:: None identified. Vital Signs: 07/03 20:37 BP 142 / 96; Pulse 72; Resp 18; Temp 98.2(O); Pulse Ox 96% on R/A; Weight 100.79 kg / kb5 222.2 lbs (M); Height 5 ft. 11 in. (180.34 cm) (R); Pain 5/10; 21:27 BP 133 / 91 Supine; Pulse 63; Resp 16; Pulse Ox 97% ; mv5 21:27 BP 144 / 99 Sitting; Pulse 62; Resp 16; Pulse Ox 97% ; mv5 21:27 BP 150 / 101 Standing; Pulse 61; Resp 18; Pulse Ox 96% ; mv5 21:30 BP 145 / 90 (auto/); mv5 21:30 Pulse 62 MON; Pulse Ox 97% ; mv5 21:45 BP 149 / 85 (auto/); mv5 21:45 Pulse 62 MON; Pulse Ox 95% ; mv5 22:00 BP 138 / 93 (auto/); mv5 22:00 Pulse 70 MON; Pulse Ox 96% ; mv5 22:15 BP 128 / 87 (auto/); mv5 22:15 Pulse 63 MON; Pulse Ox 94% ; mv5 22:30 BP 126 / 86 (auto/); mv5 22:30 Pulse 62 MON; Pulse Ox 96% ; mv5 22:48 BP 136 / 87 (auto/); mv5 22:49 Pulse 61 MON; Pulse Ox 97% ; mv5 23:00 BP 134 / 88 (auto/); mv5 23:00 Pulse 57 MON; Pulse Ox 95% ; mv5 23:15 BP 133 / 93 (auto/); mv5 23:15 Pulse 55 MON; Pulse Ox 94% ; mv5 23:30 BP 124 / 76 (auto/); mv5 23:30 Pulse 63 MON; Pulse Ox 98% ; mv5 23:45 BP 128 / 85 (auto/); mv5 23:45 Pulse 60 MON; Pulse Ox 95% ; mv5 02/21 00:00 BP 107 / 62 (auto/); mv5 00:00 Pulse 63 MON; Pulse Ox 95% ; mv5 00:15 BP 115 / 70 (auto/); mv5 00:15 Pulse 66 MON; Pulse Ox 96% ; mv5 00:30 BP 116 / 72 (auto/); mv5 00:30 Pulse 61 MON; Pulse Ox 94% ; mv5 00:45 BP 116 / 76 (auto/); mv5 00:45 Pulse 57 MON; Pulse Ox 94% ; mv5 01:00 BP 115 / 85 (auto/); mv5 01:00 Pulse 60 MON; Pulse Ox 96% ; mv5 01:15 BP 125 / 82 (auto/); mv5 01:15 Pulse 55 MON; Pulse Ox 95% ; mv5 01:30 BP 104 / 61 (auto/); mv5 01:30 Pulse 59 MON; Pulse Ox 96% ; mv5 01:45 BP 105 / 66 (auto/); mv5 01:45 Pulse 61 MON; Pulse Ox 96% ; mv5 02:00 BP 104 / 62 (auto/); mv5 02:00 Pulse 57 MON; Pulse Ox 96% ; mv5 02:15 BP 121 / 67 (auto/); mv5 02:15 Pulse 51 MON; Pulse Ox 96% ; mv5 02:30 BP 109 / 61 (auto/); mv5 02:30 Pulse 55 MON; Pulse Ox 95% ; mv5 02:45 BP 108 / 67 (auto/); mv5 02:45 Pulse 58 MON; Pulse Ox 97% ; mv5 03:00 BP 113 / 71 (auto/); mv5 03:00 Pulse 63 MON; Pulse Ox 95% ; mv5 04:18 BP 128 / 81 (auto/); mv5 04:21 Pulse 71 MON; Pulse Ox 95% ; mv5 04:30 BP 103 / 60 (auto/); mv5 04:30 Pulse 62 MON; Pulse Ox 95% ; mv5 04:45 BP 104 / 62 (auto/); mv5 04:45 Pulse 61 MON; Pulse Ox 95% ; mv5 05:00 BP 111 / 63 (auto/); mv5 05:00 Pulse 59 MON; Pulse Ox 96% ; mv5 05:15 BP 105 / 62 (auto/); mv5 05:15 Pulse 61 MON; Pulse Ox 96% ; mv5 06:20 BP 110 / 73 (auto/); mv5 06:20 Pulse 108 MON; Pulse Ox 92% ; mv5 0220 20:37 Body Mass Index 30.99 (100.79 kg, 180.34 cm) kb5 MDM: 07/03 20:50 ECG WITH READING ER PHYS+CARDIAG ordered. EDMS 21:14 Medical Staff Manager/Pulse Ox/q 15 min VS ordered. mm11 21:14 Accucheck ordered. mm11 21:14 IV Saline Lock ordered. mm11 21:14 Orthostatic VS ordered. mm11 21:14 Rhythm Strip to chart ordered. mm11 21:15 Basic Metabolic Profile Ordered. EDMS 21:15 CBC with Diff Ordered. EDMS 21:15 Cardiac Injury Profile Ordered. EDMS 21:15 Drug Eval Toxicology ED Only Ordered. EDMS 21:15 Thyroid Stimulating Hormone Ordered. EDMS 21:15 Troponin Ordered. EDMS 21:16 CT Head Without Contrast Ordered. EDMS 21:16 Chest, 1 View Ordered. EDMS 21:16 CT Angio Neck: r/o carotid dissection Ordered. EDMS 21:39 Financial registration complete. zo 22:01 [facility] Payment Agreement was scanned into [employer] and attached to record. zo 22:06 Fingerstick Blood Sugar Ordered. EDMS 22:07 Basic Metabolic Profile Reviewed. mm11 22:07 CBC with Diff Reviewed. mm11 22:07 Troponin Reviewed. mm11 23:21 Basic Metabolic Profile Reviewed. mm11 23:21 Drug Eval Toxicology ED Only Reviewed. mm11 23:21 Thyroid Stimulating Hormone Reviewed. mm11 23:21 Cardiac Injury Profile Reviewed. mm11 23:21 Troponin Reviewed. mm11 23:21 Fingerstick Blood Sugar Reviewed. mm11 23:42 Basic Metabolic Profile Reviewed. mm11 23:42 Thyroid Stimulating Hormone Reviewed. mm11 23:42 Cardiac Injury Profile Reviewed. mm11 23:42 Troponin Reviewed. mm11 23:42 FREE T4 Reviewed. mm11 07/04 00:11 BED REQUEST+ADM ordered. EDMS 00:13 ERYTHROCYTE SEDIMENTATION RATE Ordered. EDMS 00:18 Admission / Observation Status ordered. EDMS 00:19 CBC with Diff Reviewed. mm11 00:19 CT Head Without Contrast Reviewed. mm11 00:19 CT Angio Neck: r/o carotid dissection Reviewed. mm11 03:04 ECHOCARD,DOPPLER/COLOR FLOW ordered. EDMS 03:04 REGULAR DIET ordered. EDMS 03:04 MRA BRAIN W/O CONTRAST Ordered. EDMS 03:04 MRI Brain without Contrast Ordered. EDMS 03:06 CARDIAC MARKER PANEL Ordered. EDMS 03:06 CARDIAC MARKER PANEL Ordered. EDMS 03:08 COMPLETE BLOOD COUNT Ordered. EDMS 03:08 COMPLETE BLOOD COUNT Ordered. EDMS 03:21 BASIC METABOLIC PROFILE Ordered. EDMS 13:38 T-Sheet-- Draft Copy was scanned into [employer] and attached to record. gb 13:38 ECG/EKG was scanned into [employer] and attached to record. Point of Care Testing: Blood Glucose: 07/03 21:49 Blood Glucose: 92 mg/dL; mv5 Ranges: Signatures: Dispatcher [employer] EDMS Nila Barrios RN RN Sherley Saba, Manuel Reg Minh Garcia Matthew, DO DO mm11 Anny Carlisle RN RN rs3 Kalani Fonseca RN RN mv5 The chart was reviewed and I authenticate all verbal orders and agree with the evaluation and treatment provided.Corrections: (The following items were deleted from the chart) 23:26 23:23 FREE T4+LAB ordered. EDMS EDMS 07/04 00:14 00:01 ERYTHROCYTE SEDIMENTATION RATE+LAB ordered. EDMS EDMS 03:08 BASIC METABOLIC PROFILE ordered. EDMS EDMS 11:01 10:55 LIVER PROFILE ordered. EDMS EDMS 12:02 03:08 COMPLETE BLOOD COUNT ordered. EDMS EDMS : 07/03 22:01 [facility] Payment Agreement zo 07/04 13:38 T-Sheet-- Draft Copy gb 13:38 ECG/EKG gb Chart Complete MTDD
== END 2016-07-04 14:25 | disposition home or self-care (01) ==
LOC: M ED 20:35 → M ED INP 20:36 → UNDOADMOB 07-04 00:17 → M ED INP 07-04 00:17 → UNDODISOB 07-04 14:25
PROVIDERS: ADMIT Hospitalist; ATTEND Internal Medicine
DX: R55 Syncope and collapse (principal); G43.D0 Abdominal migraine, not intractable; K21.9 Gastro-esophageal reflux disease without esophagitis; R06.9 Unspecified abnormalities of breathing; E03.9 Hypothyroidism, unspecified; Z79.899 Other long term (current) drug therapy; F17.210 Nicotine dependence, cigarettes, uncomplicated
CPT/HCPCS: 36415; 70450; 70498; 70544; 70551; 71010; 80048; 80076; 80306; 82550; 82553; 84439; 84443; 85025; 85027; 85652; 93005; 93041; 96372; 99284; Q9967

== ENCOUNTER 2019-01-30 20:47 | Emergency (ER) | payer OTHER ==
[~2019-01-30] VITALS: Ht 185.4 cm; Wt 95.5 kg
[~2019-01-30 20:47] MED LIST: ACET500T15 PO; DICY10CA13 PO; NAPR1TAB86 PO; OMEP40CA2 PO; SULF500T2 PO; SYNT100T PO
[2019-01-30 20:48] VITALS: BP 141/84
[2019-01-30] MEDS ORDERED: TETRACAINE 0.5% OPHTH SOLN 4ML OU ONE (21:15)
[2019-01-30] MEDS ORDERED: FLUORESCEIN OPHTH 1 MG STRIP OU ONE (22:00)
== END 2019-01-30 22:15 | disposition home or self-care (01) ==
LOC: M ED 20:47
DX: T15.01XA Foreign body in cornea, right eye, initial encounter (principal); X58.XXXA Exposure to other specified factors, initial encounter; Y92.89 Other specified places as the place of occurrence of the external cause

== ENCOUNTER → 2019-09-09 | Outpatient (REF) | payer OTHER ==
[~2019-09-09] MED LIST changes: -OMEP40CA2 PO; +OMEP40CA97 PO
== END ==
LOC: M LAB REF 12:56
PROVIDERS: ATTEND Family Medicine
DX: M06.09 Rheumatoid arthritis without rheumatoid factor, multiple sites (principal)

== ENCOUNTER 2021-12-12 13:27 | Emergency (ER) | payer OTHER ==
[~2021-12-12] VITALS: Ht 182.9 cm; Wt 94.5 kg
[~2021-12-12 13:27] MED LIST changes: +OMEP40CA4 PO; -OMEP40CA97 PO
[2021-12-12] MEDS ORDERED: LEVO150T7 (13:38)
[2021-12-12] MEDS ORDERED: SULF500T41 (13:38)
[2021-12-12] MEDS ORDERED: ATOR1TAB19 (13:38)
[2021-12-12 15:19] VITALS: BP 148/68
== END 2021-12-12 15:21 | disposition home or self-care (01) ==
LOC: M ED 13:27
DX: S30.0XXA Contusion of lower back and pelvis, initial encounter (principal); S50.01XA Contusion of right elbow, initial encounter; S80.01XA Contusion of right knee, initial encounter; W10.9XXA Fall (on) (from) unspecified stairs and steps, initial encounter; E78.5 Hyperlipidemia, unspecified; K21.9 Gastro-esophageal reflux disease without esophagitis; M06.9 Rheumatoid arthritis, unspecified; F17.200 Nicotine dependence, unspecified, uncomplicated; Z79.02 Long term (current) use of antithrombotics/antiplatelets; Z79.83 Long term (current) use of bisphosphonates; Z79.899 Other long term (current) drug therapy; Y92.9 Unspecified place or not applicable; Y93.89 Activity, other specified; Y99.0 Civilian activity done for income or pay

== ENCOUNTER → 2022-03-08 | Outpatient (CLI) | payer OTHER ==
[~2022-03-08] MED LIST changes: +ATOR1TAB19; +LEVO150T7; +SULF500T41
== END ==
LOC: M LABSMTC 10:06
PROVIDERS: ATTEND Anesthesiology
DX: Z01.812 Encounter for preprocedural laboratory examination (principal); Z11.52 Encounter for screening for COVID-19

== ENCOUNTER 2022-03-13 08:12 | Day surgery (SDC) | payer OTHER ==
[~2022-03-13] VITALS: Ht 182.9 cm; Wt 90.0 kg
[~2022-03-13 08:12] MED LIST changes: +LIDOCAINE 2% 100MG/5ML SDV (FOR ANES.) As Ordered ONE; +propofoL 500 MG/50 ML VIAL As Ordered ONE
[2022-03-13 10:12] VITALS: BP 118/74
== END 2022-03-13 10:14 | disposition home or self-care (01) ==
LOC: M OPP 08:12
PROVIDERS: ATTEND Internal Medicine Gastroenterology
DX: Z12.11 Encounter for screening for malignant neoplasm of colon (principal); D12.3 Benign neoplasm of transverse colon; K64.8 Other hemorrhoids; Z79.02 Long term (current) use of antithrombotics/antiplatelets; Z79.1 Long term (current) use of non-steroidal anti-inflammatories (NSAID); Z79.899 Other long term (current) drug therapy; F17.200 Nicotine dependence, unspecified, uncomplicated; E03.9 Hypothyroidism, unspecified; K21.9 Gastro-esophageal reflux disease without esophagitis; Z80.1 Family history of malignant neoplasm of trachea, bronchus and lung; Z80.3 Family history of malignant neoplasm of breast

== ENCOUNTER → 2022-07-23 | Outpatient (REF) | payer OTHER ==
[~2022-07-23] MED LIST changes: -LIDOCAINE 2% 100MG/5ML SDV (FOR ANES.) As Ordered ONE; -propofoL 500 MG/50 ML VIAL As Ordered ONE
== END ==
LOC: M LAB REF 12:23
PROVIDERS: ATTEND Physician Assistant
DX: R19.7 Diarrhea, unspecified (principal)

== ENCOUNTER → 2022-08-10 | Outpatient (CLI) | payer OTHER ==
[2022-08-10 15:27] LABS: BASO # 0.1 10^3/uL (0.0-0.2); BASO % 1.2 % (0.0-1.0); EOS # 0.2 10^3/uL (0.0-0.5); EOS % 3.6 % (0.0-3.0); HEMATOCRIT 45.7 % (42.0-52.0); HEMOGLOBIN 14.9 g/dl (13.5-17.5); LYMPH % 36.3 % (24.0-44.0); MEAN CORPUSCULAR HGB CONC 32.6 g/dl (32.0-36.5); MEAN CORPUSCULAR VOLUME 92.1 fl (80.0-96.0); MONO # 0.5 10^3/uL (0.0-0.8); MONO % 8.7 % (2.0-8.0); NEUTROPHILS # 2.8 10^3/uL (1.5-8.5); PLATELET COUNT, AUTOMATED 221 10^3/uL (150-450); RED BLOOD COUNT 4.96 10^6/uL (4.30-6.10); WHITE BLOOD COUNT 5.6 10^3/uL (4.0-10.0)
[2022-08-10 15:58] LABS: LIPASE 37 U/L (12-53)
[2022-08-10 15:59] LABS: AMYLASE 58 U/L (30-118)
[2022-08-10 16:03] LABS: ALBUMIN 4.3 G/DL (3.2-5.2); ALKALINE PHOSPHATASE 92 U/L (46-116); ALT/SGPT 16 U/L (7.0-40); AST/SGOT 19 U/L (<34); BILIRUBIN,TOTAL 0.3 MG/DL (0.3-1.2); BLOOD UREA NITROGEN 15 MG/DL (9-23); CALCIUM LEVEL 9.4 MG/DL (8.5-10.1); CARBON DIOXIDE LEVEL 32 MMOL/L (20-31); CHLORIDE LEVEL 106 MMOL/L (98-107); CREATININE FOR GFR 1.12 MG/DL (0.70-1.30); GLOMERULAR FILTRATION RATE > 60.0 (>56); GLUCOSE, FASTING 85 MG/DL (60-100); SODIUM LEVEL 139 MMOL/L (136-145); TOTAL PROTEIN 6.7 G/DL (5.7-8.2)
== END ==
LOC: M RAD 14:26
PROVIDERS: ATTEND Physician Assistant Medical
DX: R10.84 Generalized abdominal pain (principal)

== ENCOUNTER → 2022-09-22 | Outpatient (CLI) | payer OTHER ==
[~2022-09-22] MED LIST changes: +GASTROGRAFIN SOLUTION 30ML As Ordered ONE; +ISOVUE-370 76% 100ML VIAL As Ordered ONE
== END ==
LOC: M RAD 09:30
PROVIDERS: ATTEND Physician Assistant Medical
DX: R10.84 Generalized abdominal pain (principal)
CPT/HCPCS: 74178; Q9963; Q9967

== ENCOUNTER → 2022-10-15 | Outpatient (REF) | payer OTHER ==
[~2022-10-15] MED LIST changes: -GASTROGRAFIN SOLUTION 30ML As Ordered ONE; -ISOVUE-370 76% 100ML VIAL As Ordered ONE
== END ==
LOC: M LAB REF 12:34
PROVIDERS: ATTEND Physician Assistant Medical
DX: R19.7 Diarrhea, unspecified (principal)

== ENCOUNTER 2023-08-16 23:53 | Emergency (ER) | payer OTHER ==
[~2023-08-16] VITALS: Ht 182.9 cm; Wt 88.6 kg
[~2023-08-16 23:53] MED LIST changes: +DICY-61 PO; -DICY10CA13 PO
[2023-08-17 00:53] LABS: BASO # 0.1 10^3/uL (0.0-0.2); BASO % 0.7 % (0.0-1.0); EOS # 0.2 10^3/uL (0.0-0.5); EOS % 3.2 % (0.0-3.0); HEMATOCRIT 45.5 % (42.0-52.0); HEMOGLOBIN 15.7 g/dl (13.5-17.5); LYMPH # 2.9 10^3/uL (1.5-5.0); LYMPH % 37.9 % (24.0-44.0); MEAN CORPUSCULAR HEMOGLOBIN 31.3 pg (27.0-33.0); MEAN CORPUSCULAR HGB CONC 34.5 g/dl (32.0-36.5); MEAN CORPUSCULAR VOLUME 90.8 fl (80.0-96.0); MONO # 0.7 10^3/uL (0.0-0.8); MONO % 9.8 % (2.0-8.0); NEUTROPHILS # 3.7 10^3/uL (1.5-8.5); NEUTROPHILS % 48.3 % (36.0-66.0); PLATELET COUNT, AUTOMATED 203 10^3/uL (150-450); RED BLOOD COUNT 5.01 10^6/uL (4.30-6.10); WHITE BLOOD COUNT 7.6 10^3/uL (4.0-10.0)
[2023-08-17] MEDS: KETOROLAC 30 MG/ML 1ML VIAL IV ONE (00:57)
[2023-08-17 01:18] LABS: ALBUMIN 4.4 G/DL (3.2-5.2); ALKALINE PHOSPHATASE 72 U/L (46-116); ALT/SGPT 19 U/L (7.0-40); AST/SGOT 16 U/L (<34); BILIRUBIN,DIRECT 0.2 MG/DL (<0.4); BILIRUBIN,TOTAL 0.5 MG/DL (0.3-1.2); BLOOD UREA NITROGEN 18 MG/DL (9-23); CARBON DIOXIDE LEVEL 30 MMOL/L (20-31); CHLORIDE LEVEL 105 MMOL/L (98-107); CREATININE FOR GFR 1.02 MG/DL (0.70-1.30); GLOMERULAR FILTRATION RATE > 60.0 (>56); GLUCOSE, FASTING 100 MG/DL (60-100); POTASSIUM SERUM 4.3 MMOL/L (3.5-5.1); SODIUM LEVEL 140 MMOL/L (136-145)
[2023-08-17] MEDS: MORPHINE 4 MG/ML 1ML VIAL IV PRN (01:23)
[2023-08-17] MEDS ORDERED: ISOVUE-370 76% 100ML VIAL As Ordered ONE (01:27)
[2023-08-17] MEDS ORDERED: NAPR1TAB86 PO (03:28)
[2023-08-17] MEDS ORDERED: METH-1165 PO (03:28)
[2023-08-17] MEDS: methocarbamoL 750 MG TAB PO ONE (03:44)
[2023-08-17 03:48] VITALS: BP 133/74; TEMP 98.6; O2SAT 96
== END 2023-08-17 03:49 | disposition home or self-care (01) ==
LOC: M ED 23:53
DX: M54.50 Low back pain, unspecified (principal); K21.9 Gastro-esophageal reflux disease without esophagitis; E78.5 Hyperlipidemia, unspecified; E03.9 Hypothyroidism, unspecified; M06.9 Rheumatoid arthritis, unspecified; F17.200 Nicotine dependence, unspecified, uncomplicated; F10.10 Alcohol abuse, uncomplicated; Z79.02 Long term (current) use of antithrombotics/antiplatelets; Z79.83 Long term (current) use of bisphosphonates; Z79.899 Other long term (current) drug therapy
CPT/HCPCS: 71275; 74177; 80048; 80076; 81001; 85025; 96374; 96375; 99284; J1885; Q9967

== ENCOUNTER → 2024-08-25 | Outpatient (CLI) | payer OTHER ==
[~2024-08-25] MED LIST changes: +METH-1165 PO
== END ==
LOC: M RAD 09:14
PROVIDERS: ATTEND Family Medicine
DX: Z12.2 Encounter for screening for malignant neoplasm of respiratory organs (principal); F17.210 Nicotine dependence, cigarettes, uncomplicated

== ENCOUNTER → 2024-12-01 | Outpatient (CLI) | payer OTHER | LOC: M RAD 08:10 | PROVIDERS: ATTEND Family Medicine | DX: R35.0 Frequency of micturition (principal) ==